=== PATIENT | male | born 1965 | race Two or more races ===

== ENCOUNTER 2024-06-24 06:56 | Outpatient (REF) | payer OTHER, SELFPAY ==
--- OUTSIDE RECORDS SUMMARY | 2024-06-24 07:01 | XMS_ITS | Data Portability ---
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 Patient reports history of previous cortisone injection with temporary relief. He has also tried rest, activity modification, oral anti-inflammatori es. Current episode is characterized by different pain pattern, with posterior knee swelling and medial knee pain. Patient describes occasional mechanical symptoms, specifically a 'clacking' sensation when getting up. Reports taking collagen supplements with some perceived benefit. I independently reviewed the outside MRI of the left knee dated 04/29/2024 from [facility]. There is degenerative tearing of the body of the medial meniscus. Undersurface tear of the posterior horn lateral meniscus. Charcot femoral chondromalacia noted without full thickness deficit to the tibiofemoral compartments. There is a full-thickness chondral fissure to the medial patellar facet. Extensor mechanism intact. Loculated Thomas cyst noted posteromedially. ACL and PCL intact collateral ligaments intact. He has a past medical history of hypertension. Medications listed in the medical record. He has allergies to Bactrim and aspirin. He denies tobacco use. No personal or family history of blood clots. Past medical, surgical, family and social history; Medications, Allergies and 12-point review of systems have been reviewed, updated and charted. Physical Examination: Height and weight as listed in chart. Constitutional: Patient pleasant, well appearing and in NAD. Mental status: Patient is alert and oriented to person, place and time. No short-term memory deficits. Psychiatric: Mood and affect are appropriate. Head: Normocephalic and atraumatic. Exterior inspection of the ears and nose was unremarkable. Hearing grossly intact. Eyes: Sclera are not blue. cable respooler II-XII are grossly intact. Full extraocular motion. Neck: Supple with age-appropriate ROM. No tracheal deviation. No obvious JVD. Respiratory: Non-labored breathing. Symmetric excursion. No audible wheezing or crackles on auscultation. Cardiovascular: Regular rate and rhythm and normal S1 and S2. Skin: No rashes, lesions, wounds to the lower extremities. Normal turgor and coloration. Musculoskeletal: On examination of the left knee, there is a mild effusion with no erythema or ecchymosis. Range of motion from 0-130??. He has pain with deep knee flexion. Tenderness to palpation along the medial joint line. Pain along the medial joint line with Litzy's maneuver. His knee is stable to varus and valgus stress as well as Sandra and posterior drawer. No patellar instability or grinding. Extensor mechanism intact. 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 I discussed etiology of the patient's symptoms with him at length today. I discussed options both operative and nonoperative. At this point, he has failed conservative treatment including rest, activity modification, oral anti-inflammatori es and cortisone injection treatment. Therefore, I recommend moving forward with left knee diagnostic and operative arthroscopy with partial medial and lateral meniscectomies and chondroplasty/zaria ridement. Anticipated recovery after surgery is approximately 6 weeks. I will allow the patient to weight-bear as tolerated. I recommend the patient begin physical therapy within 2 days of surgery to prevent knee stiffness. The patient does wish to proceed. Preoperative history and physical completed. All questions and concerns addressed. 1. A detailed discussion regarding the patient? s pathoanatomy and treatment options, both operative and non-operative, was conducted today. 2. Given that conservative measures have failed, I recommended left knee diagnostic and operative arthroscopy with partial medial and lateral meniscectomies and chondroplasty/zaria ridement. 2. The mechanics of the major surgery were reviewed with explanation, diagram, and review of imaging. 3. I told the patient that the goal of surgery was to improve their overall function and symptoms, but that surgery may not relieve all symptoms. I advised the patient that symptom resolution after this procedure may be protracted and incomplete.?? I explained that, as a result, permanent functional limitations may be recommended. 4. An appropriate timeline of recovery was outlined, and appropriate expectations were reviewed. 5. The risks and benefits of surgery, and the nonoperative alternatives, were discussed at length. Risks include, but are not limited to infection, bleeding, damage to nerves, blood vessels, muscle, tendon, bone; need for further surgery, wound healing problems, hardware related problems, non-relief of symptoms, recurrence of pathology, reinjury, chronic pain, chronic numbness, chronic weakness, loss of function, compartment syndrome, fracture, complex regional pain syndrome, joint stiffness, adhesions/scarrin g, arthritis or progression of arthritis, complications of anesthesia, and blood clots. 6. The patient has been educated in clear, simple language and on their own level of understanding the risks and benefits of all viable treatment options, including those of no treatment. All questions have been answered to their satisfaction. The patient has made an informed decision to proceed with surgery. 7. The patient was offered a second opinion regarding diagnosis and management of their condition and they respectfully declined. The patient was referred for a semi-rigid/rigid orthosis. The patient has weakness and instability of their extremity which requires stabilization for this semi-rigid/rigid orthosis to improve their function. Verbal and written instructions for the use and application of this item were given. Patient was instructed that should the brace result in increased pain, decreased sensation, increased swelling or an overall worsening of their medical condition, to please contact our office immediately. Today's visit involved examining the patient, reviewing the history, reviewing the radiographic studies, counseling the patient regarding treatment options, and the administrative tasks including placing orders, preparing patient information and home handouts and preparing the visit note. This note was generated with [employer] [facility] speech recognition welfare centre manager dictation software. Please excuse any errors that may have been overlooked during review of this note. Sometimes, these errors may affect the content or meaning of a given sentence. Please call for corrections. [email or web address] Not available 05/25/2024 15:23:43 Plan of Treatment Reminders Order Date Submit Date Provider Last Modified By Organization Details Last Modified Time Details Appointments None recorded. Lab None recorded. Referral None recorded. Procedures None recorded. Surgeries None recorded. Imaging MRI, knee, w/o contrast 2024 025 [facility] [address], [place], [address], 5 08:31:30 XR, knee, 4 or more view - 107 2023 024 [facility] Office, [address], [address], [place], [address], 4 15:56:44 Medication Orders None recorded. Patient TargetsNo targets recorded. Patient InstructionsNo instructions recorded. Reason for Referral None Reported. Results Created Date Observation Date Name Description Value Unit Range Abnormal Flag Note LastModifiedBy Organization Detail LastModifiedTime 11/03/19 24 11/03/2023 XR, knee, 4 or more view [email or web address] ?Encry pted=s hAaTro YD8dLq bEUv6g %2BXZw aYqtaq 0bqfl% 2Fg9IQ a4ajBk vP9nXo QUaueC m3YtLR FvZlgJ JJ8mAn HZtai3 5j4694 AC0Kpb HqEVKH eUC8mr 84%3D INTERFACE [facility] [address], [place], [address], 11/03/2023 13:53:02 11/03/19 24 11/03/2023 XR, knee, 4 or more view [email or web address] ?Encry pted=s hAaTro YD8dLq bEUv6g %2BXZw aYqtaq 0bqfl% 2Fg9IQ a4ajBk vP9nXo QUaueC m3YtLR FvZlgJ JJ8mAn HZtai3 7r9966 AC0Kpb HqEVKH eUC8mr 84%3D INTERFACE [facility] [address], [place], [address], 11/03/2023 13:53:05 04/30/19 25 04/29/2024 MRI, knee, w/o contr ast [facility] Access ion Number : [id number] Patien t Name: Bruce Trammell Record Number : [id number] Date of : 1965 Date of Exam: 2024 Referr ing Physic jackelyn: Neeta Samaniego [address] [facility], [place] [address] Exam: MR Knee (C-) CPT 06540 - Left Room Descri ption: [facility] Verio 3.0T MRI left knee Histor y: Pain Findin gs: Mild free edge degene rative radial tearin g with mild trunca tion of the body of the medial menisc us. Additi onal myxoid degene ration in the reservoir caretaker ior horn of the medial menisc us Body of the medial menisc us is sublux ed slight ly into the medial gutter . Thinni ng and irregu larity within weight bearin g surfac e cartil age of the medial compar tment. Small amount of subcho ndral marrow edema in the medial tibial platea u. Small margin al osteop hytes in the medial compar tment. Small unders urface tear within the reservoir caretaker ior horn of the latera l menisc us. Additi onal mild degene rative free edge radial tearin g with mild trunca tion of the reservoir caretaker ior horn of the latera l menisc us. Thinni ng and irregu larity within weight bearin g surfac e cartil age of the latera l compar tment The ACL and PCL are intact The MCL is intact The LCL comple x includ ing the biceps femori s, poplit eus and fibula r collat eral ligame nts are intact The medial and latera l patell ar retina cula are intact . Full thickn ess fissur e within medial patell ar facet cartil age. The extens or mechan ism is intact Locula romana Thomas' s cyst cyst measur es up to 3 cm AP by 6.5 cm cranio caudal .. Impres lyssa: Degene rative free edge radial tearin g with trunca tion of the body of the medial menisc us. Small unders urface tear in the reservoir caretaker ior horn of the latera l menisc us. Additi onal mild degene rative free edge radial tearin g with mild trunca tion of the reservoir caretaker ior horn of the latera l menisc us. Tricom partme ntal chondr omalac ia is outlin ed above. Locula romana Thomas' s cyst. Electr onical ly Signed By: Belkis Adhikari MD [address] [facility] ([facility]) [address], [place], [address], 04/30/2024 09:41:39 Result Notes None recorded. Problems Name Problem SNOMED Code Status Onset Date Resolution Date Notes Provider Name and Address Organization Details Recorded Time No complaints 202583880 Active Status : 'I'; Not Available [employer] 4 09:20:47 Pain of left knee joint 2703962907936 07 Active 2023 Neeta Herman PA-C [address], [facility] [place], [address] , [facility] 12:30:57 Problem Notes None recorded. Procedures Surgical History Date Name Laterality Status Provider Name and Address Organization Details Recorded Time 11/03/2023 Sports Knee 4&1 completed Neeta Herman PA-C [address], [place], [address], [facility] 11/05/2023 08:44:04 Imaging Results Imaging Date Name Status LastModified by Organiz ation Details LastModified Time 11/03/2023 XR, knee, 4 or more view completed [facility] [address], [place], [address], 11/03/2023 13:53:02 11/03/2023 XR, knee, 4 or more view completed [facility] [address], [place], [address], 11/03/2023 13:53:05 04/29/2024 MRI, knee, w/o contrast completed [address] [facility] ([facility]) [address], [place], [address], 04/30/2024 09:41:39 Procedure Notes None recorded. Medical Equipment None Reported. Allergies Allergen ID Allergen Name Allergen Category Reaction Reaction Severity Criticality Documentation Date Start Date Code Code System Note Provider Name and Address Organization Details Recorded Time 45649 Bactrim medicatio n Not available Not available Not available 06/23/20232021 42907 9 RxNorm Not Available [facility] 15:00:30 Medications Name Sig Start Date Stop Date Status Note LastModified by Organization Details LastModified Time doxycycline hyclate 100 mg capsule TAKE 1 CAPSULE BY MOUTH TWICE A DAY FOR 10 DAYS MAY TAKE WITH FOOD TO MINIMIZE ABDOMINAL DISCOMFOR T 11/02 completed Not Available Not Available Not Available cetirizine 10 mg tablet TAKE 1 TABLET BY MOUTH EVERY DAY active Not Available Not Available No t Available fluconazole 150 mg tablet TAKE 1 TABLET BY MOUTH ONCE 11/02 completed Not Available Not Available Not Available rizatriptan 10 mg tablet TAKE 1 TABLET BY MOUTH DAILY NEEDED FOR MIGRAINE HEADACHE, MAY REPEAT DOSE EVERY 2HRS. MAX OF 2 11/02 completed Not Available Not Available Not Available atenolol 25 mg tablet TAKE 1 TABLET BY MOUTH EVERYDAY AT BEDTIME active Not Available Not Available No t Available triamcinolo ne acetonide 0.1 % topical cream APPLY TOPICALLY 2 TIMES A DAY,X30 DAY APPLY A THIN FILM TO AFFECTED AREA active Not Available Not Available No t Available amlodipine 5 mg-benazepr il 10 mg capsule TAKE 1 CAPSULE BY MOUTH EVERY DAY active Not Available Not Available No t Available benzonatate 100 mg capsule TAKE 1 CAPSULE BY MOUTH THREE TIMES A DAY FOR 7 DAYS NEEDED FOR COUGH active Not Available Not Available No t Available cephalexin 500 mg capsule TAKE 1 CAPSULE BY MOUTH 4 TIMES A DAY FOR 7 DAYS 11/02 completed Not Available Not Available Not Available podofilox 0.5 % topical solution USE TWICE DAILY FOR 3 DAYS THEN 3 DAYS OFF UNTIL RESOLUTIO N active Not Available Not Available No t Available hydroxyzine HCl 25 mg tablet 11/02 completed Not Available Not Available Not Available mupirocin 2 % topical ointment APPLY TOPICALLY TO AFFECTED AREA OF SKIN TWICE A DAY FOR 14 DAYS 11/02 completed Not Available Not Available Not Available ketoconazol e 2 % topical cream APPLY TO AFFECTED SKIN TWICE DAILY FOR 14 DAYS NEEDED 11/02 completed Not Available Not Available Not Available fluocinonid e 0.05 % topical cream APPLY TO AFFECTED AREA (ARMPIT IRRITATIO N) EVERY MORNING & EVENING FOR A FEW DAYS ONLY. active Not Available Not Available No t Available doxycycline hyclate 100 mg tablet TAKE 1 TABLET BY MOUTH EVERY 12 HOURS FOR 10 DAYS 11/02 completed Not Available Not Available Not Available atenolol 50 mg tablet TAKE 1 TABLET BY MOUTH EVERY DAY active Not Available Not Available No t Available amoxicillin 875 mg-potassiu m clavulanate 125 mg tablet TAKE 1 TABLET BY MOUTH EVERY 12 HOURS BEFORE OR WITH MEALS AND SNACKS FOR 10 DAYS active Not Available Not Available No t Available clindamycin 1 % lotion APPLY TOPICALLY TO AFFECTED AREA(S) OF GROIN TWO TIMES A DAY FOR 2 TO 3 WEEKS 11/02 completed Not Available Not Available Not Available baclofen 5 mg tablet PLEASE SEE ATTACHED FOR DETAILED DIRECTION S 11/02 completed Not Available Not Available Not Available Vitals Date Recorded Body height Body mass index (BMI) Body weight Provider Name and Address Organization Details Last Updated DateTime 11/03/2023 182.88 cm 29.8 kg/m2 31144.32 g EDDIE Ozuna [employer] [employer] [facility] 11/03/2023 13:43:44 Date Recorded Body height Provider Name an d Address Organization Details Last Updated DateTime 04/27/2024 182.88 cm GEMA SEGUNDO [employer] [facility] 04/27/2024 15:16:42 Date Recorded Body height Body mass index (BMI) Body weight Heart rate Body temperature Oxygen saturation Oxygen saturation in Arterial blood by Pulse oximetry Respiratory rate Systolic blood pressure Diastolic blood pressure Provider Name and Address Organization Details Last Updated DateTime 182.88 cm 29.8 kg/m2 83759.3 2 g 71 /min 98.2 [degF] 96 % 96 % 18 /min 118 mm[Hg] 80 mm[Hg] CLAUDIA FERNANDES [place] [facility] 15:43:32 Social History Question Answer Notes LastModified by Organizat ion Details LastModified Time Tobacco Smoking Status Current Some Day Smoker EDDIE NEIDA nunez [place] [facility] 11/03/2023 13:43:31 What Is Your Level Of Alcohol Consumption? None Information not available 11/03/2023 Which Of Your Hands Is Dominant? Right Information not available 11/03/2023 What Is Your Relationship Status? Single Information not available 11/03/2023 Do You Use Any Illicit Or Recreational Drugs? No Information not available 11/03/2023 How Many Years Have You Smoked Tobacco? 15 Information not available 11/03/2023 Do You Or Have You Ever Used Any Other Forms Of Tobacco Or Nicotine? No Information not available 11/03/2023 Sex: Unknown Functional Status None recorded. Mental Status None recorded. Family History Nothing Reported. Medical History Condition Response Allergies/Hayfever N Coronary Artery Disease N Anxiety/Depression N Breathing or lung disorders N Emphysema N Nerve Disorders N Thyroid Problems N COPD N Pacemaker N Anemia N Kidney/Bladder Problems N Vascular Disease N Heart Trouble N Heart Attack ([place]) N Gastrointestinal Disease N Cholesterol N Diabetes N Autoimmune disease N Bleeding Disorder N Orthotics N Arthritis N Seizures/Epilepsy N Blood Clot N AIDS/HIV N Congestive Heart Failure (CHF) N Acid Reflux (GERD) N Cancer N Stroke N Asthma N Circulation Problems N Peripheral Vascular Disease N Sleep Apnea Y Hepatitis N Heart Disease N Rheumatoid Arthritis N Arrhythmia N Pulmonary Embolism N Headaches Y Fibromyalgia N Hypertension Y Osteoporosis N Past Encounters Encounter ID Performer Location Encounter Start Date Encounter Closed Date Diagnosis/Indication Diagnosis SNOMED-CT Code Diagnosis ICD10 Code Diagnosis Note [id number] PATI Machado [address] [place] [address] 11/03/2023 13:31:05 11/18/2023 15:56:44 Pain of left knee joint 6672746902 37280 M25.188 [id number] PATI Morton [address] [place] [address] 04/27/2024 14:55:14 05/12/2024 08:31:30 Pain of left knee joint 0876564391 55814 M25.654 [id number] MD GEMMA Sanon [address] [place] [address] 05/25/2024 14:25:24 06/07/2024 13:03:19 Tear of medial meniscus of knee 054271315 S83.242A Tear of la teral meniscus of knee 168424173 S83.282A Chondromal acia of left knee 5253728422 5930296 M94.262 Health Concerns Section Related Observation LastModified by Organization Detai ls LastModified Time None Recorded Concern Status LastModified by Organization Details LastModified Time None Recorded Advance Directives Directive None Recorded Payers Encounter Date Sequence Insurance Name Policy Number Policy Gupta Covered Member ID Gupta Member ID Guarantor Name 11/03/2023 1 [facility] (MEDICAID HMO) [id number] Bruce Trammell [id number] Bruce Trammell 04/27/2024 1 [employer] [facility] (EPO) [id number] Bruce Trammell [id number] Bruce Trammell 05/25/2024 1 [employer] [facility] (EPO) [id number] Bruce Trammell [id number] Bruce Trammell Notes Date Note Type Note Provider Name and Address Organization Details Recorded Time 11/03/2023 text/html I am seeing the patient today under the supervision of {{Marni Jimenez* Brothers}} who was available but who did not see the patient. HPI: 57-year-old male patient presents today for left knee pain that began about 6 months ago, no specific injury. Localizes his pain to the medial aspect of the knee. 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 Pain exacerbated with pivoting, pushing a bed, stairs, at night and prolonged walking. He does report mechanical catching. He takes ibuprofen as needed. Past family, social history and review of systems has been reviewed, updated and is located in the patient? s chart. X-RAYS:4v X-rays of the {{Right Left* Bilate ral}} knee were ordered, obtained and reviewed today at [facility] demonstrates well preserved medial and lateral compartment spaces, mild to moderate patellofemoral space narrowing. IMPRESSION: {{Right Left* Bilate ral}} knee - patellofemoral arthrosis, possible medial meniscus tearPLAN: Findings reviewed. Discussed conservative treatment as an appropriate initial option. He elected to proceed with left knee cortisone injection today. Discussed continuing to use [id number] knee sleeve and anti-inflammatories as needed. Discussed low impact exercise and avoiding squatting and kneeling to lower recheck visit. Follow-up in 8-10 weeks for recheck, if symptoms continue would obtain an MRI to rule out meniscus tear. All of his concerns are addressed and he understands and agrees with the plan. Speech recognition welfare centre manager software was used to create portions of this document. An attempt at proofreading has been made to minimize errors. Please call for corrections. Neeta Herman PA-C [address] [place] [address] [address] [facility] [place], [place], [address], [facility] [place] 11/05/2023 08:45:07 04/27/2024 text/html I am seeing the patient today under the supervision of {{Azra ConnellShickley Brothers}} who was available but who did not see the patient. CLINICAL UPDATE: 58-year-old male patient presents today for left knee recheck. Last cortisone injection 11/03/23 provided good relief but pain has returned. He reports he tried to walk on a flat incline on the treadmill and developed pain posterior knee and some low grade swelling. HPI: Presented 11/03/23 with left knee pain that began about 6 months ago, no specific injury. Localizes his pain to the medial aspect of the knee. 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 Pain exacerbated with pivoting, pushing a bed, stairs, at night and prolonged walking. He does report mechanical catching. He takes ibuprofen as needed. Past family, social history and review of systems has been reviewed, updated and is located in the patient? s chart.X-RAYS:Previou s4v X-rays of the {{Right Left* Bilate ral}} knee reviewed today at [facility] demonstrates well preserved medial and lateral compartment spaces, mild to moderate patellofemoral space narrowing. IMPRESSION: {{Right Left* Bilate ral}} knee - patellofemoral arthrosis, possible medial meniscus tear PLAN: Findings reviewed. Patient has tried a cortisone injection 11-03-2023 and ibuprofen with mild relief. However, he continues to have medial and posterior aspect knee pain worse with activity. Given his minimal osteoarthritis, recommended MRI of left knee to rule out degenerative meniscus tear and discussed role of arthroscopy. Follow-up for MRI review and ongoing symptoms. All of his concerns are addressed and he understands and agrees with the plan. Speech recognition welfare centre manager software was used to create portions of this document. An attempt at proofreading has been made to minimize errors. Please call for corrections. Neeta John PA-C [address], [place], [address], [facility] 04/27/2024 16:51:36
[2024-06-24 07:10] LABS: MANUAL DIFF FLAG NO
[2024-06-24 07:28] LABS: Basophils Absolute Auto 0.1 X10*3/uL (0.0-0.2); Basophils Percent Auto 0.9 % (0-2); Eosinophils Absolute Auto 0.4 X10*3/uL (0.0-0.4); Eosinophils Percent Auto 5.5 % (0-4); Hematocrit 42.8 % (42.0-52.0); Hemoglobin 15.1 g/dl (14.0-18.0); Imm Gran Abs Auto 0.02 X10*3/uL (0.00-0.03); Imm Gran Pct Auto 0.3 % (0.0-0.4); Lymphocytes Absolute Auto 2.4 X10*3/uL (1.2-4.9); Lymphocytes Percent Auto 30.8 % (20-40); Mean Corpuscular HGB Conc 35.3 g/dl (31.0-36.0); Mean Corpuscular Hemoglobin 29.9 pg (27.0-33.0); Mean Corpuscular Volume 84.8 fL (80.0-98.0); Mean Platelet Volume 9.3 fL (9.4-12.4); Monocytes Absolute Auto 0.6 X10*3/uL (0.1-1.2); Monocytes Percent Auto 7.2 % (2-11); Neutrophils Absolute Auto 4.3 x10*3/uL (2.0-8.3); Neutrophils Percent Auto 55.3 % (45-73); Platelet Count 338 X10*3/uL (160-400); Red Blood Count 5.05 X10*6/uL (4.60-5.80); Red Cell Distribution Width 14.3 % (11.0-16.0); White Blood Count 7.7 X10*3/uL (4.8-10.8)
[2024-06-24 08:03] LABS: Alanine Aminotransferase 33 U/L (0-40); Anion Gap 12 (12-20); Aspartate Amino Transferase 33 U/L (5-37); Blood Urea Nitrogen 20 mg/dL (9-16); Calcium 9.7 mg/dL (8.4-10.2); Carbon Dioxide 24 mmol/L (22-29); Chloride 107 mmol/L (96-108); Cholesterol 179 mg/dL (<200); Estimated Glomerular Filt Rate > 60; Glucose Random 95 mg/dL (60-115); HDL Cholesterol 43 mg/dL (>40); LDL Cholesterol Calculated 119 mg/dL (<100); Potassium 4.5 mmol/L (3.3-5.1); Sodium 138 mmol/L (135-145); Triglycerides 86 mg/dL (<150)
[2024-06-24 08:19] LABS: Thyroid Stimulating Hormone 1.06 uIU/mL (0.32-4.0)
== END 2024-06-24 06:57 | disposition home or self-care (01) ==
LOC: HO.LAB 06:56
PROVIDERS: PCP Internal Medicine; Visit Provider Internal Medicine
DX: Z00.00 Encounter for general adult medical examination without abnormal findings (principal); G47.33 Obstructive sleep apnea (adult) (pediatric); Z68.30 Body mass index [BMI] 30.0-30.9, adult
CPT/HCPCS: 36415; 80048; 80061; 84443; 84450; 84460; 85025

== ENCOUNTER 2024-07-29 06:32 | Emergency (ER) | payer OTHER, SELFPAY ==
[2024-07-29 06:34] VITALS: BP 143/81; PULSE 75; RESP 18; TEMP 36.6; O2SAT 98; BMI 29.8
[2024-07-29 06:48] LABS: MANUAL DIFF FLAG NO
[2024-07-29 06:54] LABS: Appearance Urine Clear; Color Urine Yellow; Glucose Urine UA Negative (Negative); Leukocyte Esterase Urine Negative (Negative); Nitrite Urine Negative (Negative); Specific Gravity - Urine 1.015 (1.005-1.025); Urine Blood Negative (Negative); Urine Ketones Negative (Negative); Urine Protein Negative (Neg-Trace)
[2024-07-29 06:55] LABS: Basophils Absolute Auto 0.1 X10*3/uL (0.0-0.2); Basophils Percent Auto 0.7 % (0-2); Eosinophils Absolute Auto 0.4 X10*3/uL (0.0-0.4); Eosinophils Percent Auto 4.1 % (0-4); Hematocrit 40.9 % (42.0-52.0); Hemoglobin 14.8 g/dl (14.0-18.0); Imm Gran Abs Auto 0.02 X10*3/uL (0.00-0.03); Imm Gran Pct Auto 0.2 % (0.0-0.4); Lymphocytes Absolute Auto 2.9 X10*3/uL (1.2-4.9); Lymphocytes Percent Auto 29.1 % (20-40); Mean Corpuscular HGB Conc 36.2 g/dl (31.0-36.0); Mean Corpuscular Hemoglobin 30.2 pg (27.0-33.0); Mean Corpuscular Volume 83.5 fL (80.0-98.0); Mean Platelet Volume 8.6 fL (9.4-12.4); Monocytes Absolute Auto 0.8 X10*3/uL (0.1-1.2); Monocytes Percent Auto 7.8 % (2-11); Neutrophils Absolute Auto 5.9 x10*3/uL (2.0-8.3); Neutrophils Percent Auto 58.1 % (45-73); Platelet Count 360 X10*3/uL (160-400); Red Cell Distribution Width 14.7 % (11.0-16.0); White Blood Count 10.1 X10*3/uL (4.8-10.8)
[2024-07-29 07:05] LABS: Bacteria Urine None Seen (None Seen); Hyaline Casts Urine 0-2 /LPF (0-2); RBC Urine 0-2 /HPF (0-2); Squamous Epithelial Cell Urine 0-2 /HPF (0-2); WBC Urine 0-5 /HPF (0-5)
--- OUTSIDE RECORDS SUMMARY | 2024-07-29 07:08 | XMS_ITS | Clinical Summary ---
Author Organization [facility] [address] [facility] Address [address] [place] [address] Phone Care Team Providers Care Orthotist Or Prosthetist Name Role Phone Chris Justice MD Primary Care Provider [phone] Allergies Active Allergy Reactions Criticality Noted Date Comments Aspirin 07/20/2024 Sulfamethoxazole-Trimethoprim 2024 Medications amLODIPine-shravan zepril (LOTREL) 5-10 mg per capsule 5 Active atenoloL (TENORMIN) 50 mg tablet 5 Active fluticasone propionate (FLONASE) 50 mcg/actuation nasal spray 5 Active podofilox (CONDYLOX) 0.5 % external solution 5 Active rizatriptan (MAXALT) 10 mg tablet TAKE 1 TABLET BY MOUTH DAILY NEEDED FOR MIGRAINE HEADACHE,MAY REPEAT DOSE EVERY 2HRS. MAX OF 2 4 Active triamcinolone (KENALOG) 0.1 % cream APPLY TOPICALLY 2 TIMES A DAY,X30 DAY APPLY A THIN FILM TO AFFECTED AREA 5 Active Encounters Date Type Department Care Team Description 07/20/2024 Telephone Gastroenterology - [address] [address] Ricardo Contreras MD Special Procedure from Last 3 Months Social History Tobacco Use Types Packs/Day Years Used Date Smoking Tobacco: Never Assessed Sex and Gender Information Value Date Recorded Sex Assigned at Not on file Legal Sex Male 12:47 PM EST Gender Identity Not on file Sexual Orientation Not on file Plan of Treatment Health Maintenance Due Date Last Done Comments DTaP,Tdap,and Td Vaccines (1 - Tdap) 12/30/1983 Hepatitis B Vaccines (1 of 3 - 19+ 3-dose series) 12/30/1983 Pneumococcal Vaccine: 50+ Ye ars (1 of 1 - PCV) 2014 Zoster Vaccines (1 of 2) 2014 COVID-19 Vaccine (1 - 2023-2 5 season) 2023 Cholesterol Screening (Lipid Panel) 07/20/2024 Colorectal Cancer Screening: Colonoscopy 07/20/2024 Depression Screening 07/20/2024 HIV Screening 07/20/2024 Hepatitis C Screening 07/20/2024 Social Influencers of Health Screening 07/20/2024 Influenza Vaccine (Season Ended) 2024 RSV Immunization Adult Patie nts (1 - 1-dose 75+ series) 12/30/2039 HIB Vaccines Aged Out No longer eligi ble based on patient's age to complete this topic HPV Vaccines Aged Out No longer eligi ble based on patient's age to complete this topic Hepatitis A Vaccines Aged Out No long er eligible based on patient's age to complete this topic IPV Vaccines Aged Out No longer eligi ble based on patient's age to complete this topic MMR Vaccines Aged Out No longer eligi ble based on patient's age to complete this topic Meningococcal ACWY Vaccine Aged Out N o longer eligible based on patient's age to complete this topic Meningococcal B Vaccine Aged Out No l onger eligible based on patient's age to complete this topic Pneumococcal Vaccine: Pediat rics (0 to 5 Years) and At-Risk Patients (6 to 64 Years) Aged Out No longer eligible b ased on patient's age to complete this topic RSV Immunization Patients Un brina 20 months Aged Out No longer eligible b ased on patient's age to complete this topic Varicella Vaccines Aged Out No longer eligible based on patient's age to complete this topic Insurance MEDICAID - [place] Care Teams Orthotist Or Prosthetist Relationship Specialty Start Date End Date Chris Justice MD [address] [place] [address] PCP - General Internal Medicine 07/02/18
--- NOTE | 2024-07-29 07:15 | ED.GENADULT ---
HPI - General Adult General Chief complaint: General Medical Stated complaint: lower back pain Time Seen by Provider: 07/29/24 07:04 Source: patient Mode of arrival: ambulatory Limitations: no limitations History of Present Illness HPI narrative: This is a 58-year-old man with a past medical history of hypertension who presents for evaluation of right lower back pain. Patient states that a few days prior to presentation he was bending over and then when he stood up straight he began to experience right lower back pain. He states no radiation of this patient. He states no trauma. He states no lower extremity/saddle paresthesias. He states no fevers or chills. He states his only daily medications are for hypertension. Related Data Previous Rx's ?Medication ?Instructions ?Recorded lidocaine 5 % topical patch 1 patch topical DAILY #15 ea 07/29/24 (Lidoderm) Allergies Allergy/AdvReac Type Severity Reaction Status Date / Time sulfamethoxazole Allergy Hives Verified 07/29/24 06:36 [From Bactrim] trimethoprim [From Bactrim] Allergy Hives Verified 07/29/24 06:36 Review of Systems Review of Systems: ROS as per HPI [facility] Social History Social History Unable to assess alcohol history related to: Unknown Smoked in Last 30 Days: No Use of substances other than those prescribed or required for medical reasons: Unknown Advance Directives: No Advance Directives Information Provided: No Do you have a plan to hurt others: No Plan Physical Exam ED Vital Signs: Vital Signs - 24 hr 07/29/24 06:34 Temperature 97.9 F Pulse Rate 75 Respiratory Rate 18 Blood Pressure 143/81 H Pulse Oximetry 98 Oxygen Delivery Method Room Air BMI result Body Mass Index 29.8 Gen: NAD, AOx3 HEENT: NCAT, EOMI, normal conjunctiva CV: RRR, 2+ DP/PT pulses Pulm: CTAB, no increased work of breathing GI: Soft, NTND, no rebound, guarding or rigidity MSK: No midline vertebral tenderness to palpation, mild right lower lumbar tenderness to palpation without overlying skin changes, BLE compartments are soft Neuro: Grossly non focal, sensation intact to light touch in bilateral lower extremities, 5/5 bilateral hip/knee/ankle/hallux extension/flexion Medications Administered Discontinued Medications Generic Name Dose Route Start Last Admin Trade Name Freq PRN Reason Stop Dose Admin Ketorolac Tromethamine 15 mg 07/29/24 07:13 07/29/24 07:17 Ketorolac Tromethamine 15 Mg/Ml Vial IVPUSH 07/29/24 07:14 15 mg ONCE ONE Administration Lidocaine 1 patch 07/29/24 07:13 07/29/24 07:17 Lidocaine 4 % Patch Adh..Patch TRANSDERMA 07/29/24 07:14 1 patch ONCE ONE Administration Protocol Medical Decision Making Medical Decision Making [facility] Narrative: Differential diagnosis includes, but is not limited to lumbar strain, degenerative disc disease, radiculopathy, herniated disc, spinal stenosis. Patient is afebrile and hemodynamically stable on room air. Exam is benign and reassuring. I reviewed and interpreted labs, which are noncontributory. Patient does not have any red flag symptoms associated with his back pain to sugges indication for further emergent evaluation with MRI given reassuring history and low clinical suspicion for pathologies inclding, but not limited to cauda equina syndrome, epidural abscess or osteomyelitis/discitis. Further, history and exam is not suggestive of nephrolithiasis, pyelonephritis, appendicitis or vascular catatrophe such as abdominal aortic aneurysm or aortic dissection. Thus, although CT imaging is considered it is no indicated at this time. Patient is treated supportively with Toradol and Lidoderm patch. On re-examination, patient is well-appearing and in no acute distress. There is no indication for further emergent evaluation in this otherwise well-appearing patient as above. Patient is provided written and verbal instructions, educational materials, recommendations for outpatient follow-up, prescription for lidocaine patches, strict return precautions and teach back is performed. Patient states understanding and agreement with plan of care. Patient is discharged home in stable and improved condition. Admission/Observation Consideration of admission/observation: Escalation of care including admission/observation considered Lab Data [facility] Lab Attestation statement: I reviewed the patient's lab results. CBC and metabolic panel are unremarkable and reassuring. Urinalysis is noncontributory with no RBCs to suggest nephrolithiasis and not consistent with urinary tract infection. 07/29/24 06:42 07/29/24 07:24 Labs: Lab Results 07/29/24 07/29/24 Range/Units 06:42 07:24 WBC 10.1 (4.8-10.8) X10*3/uL RBC 4.90 (4.60-5.80) X10*6/uL Hgb 14.8 (14.0-18.0) g/dl Hct 40.9 L (42.0-52.0) % MCV 83.5 (80.0-98.0) fL MCH 30.2 (27.0-33.0) pg MCHC 36.2 H (31.0-36.0) g/dl RDW 14.7 (11.0-16.0) % Plt Count 360 (160-400) X10*3/uL MPV 8.6 L (9.4-12.4) fL Immature Gran % (Auto) 0.2 (0.0-0.4) % Neut % (Auto) 58.1 (45-73) % Lymph % (Auto) 29.1 (20-40) % Gibson % (Auto) 7.8 (2-11) % Eos % (Auto) 4.1 H (0-4) % Baso % (Auto) 0.7 (0-2) % Lymph # (Auto) 2.9 (1.2-4.9) X10*3/uL Gibson # (Auto) 0.8 (0.1-1.2) X10*3/uL Eos # (Auto) 0.4 (0.0-0.4) X10*3/uL Baso # (Auto) 0.1 (0.0-0.2) X10*3/uL Abs Immat Gran (auto) 0.02 (0.00-0.03) X10*3/uL Absolute Neuts (auto) 5.9 (2.0-8.3) x10*3/uL Absolute Nucleated RBC 0.000 (0.0-0.012) X10*3/uL Nucleated RBC % (auto) 0.0 (0.0-0.2) /100WBC Sodium 137 (135-145) mmol/L Potassium 4.7 (3.3-5.1) mmol/L Chloride 108 (96-108) mmol/L Carbon Dioxide 23 (22-29) mmol/L Anion Gap 11 L (12-20) BUN 17 H (9-16) mg/dL Creatinine 0.91 (0.5-1.4) mg/dL Estim Creat Clear Calc 106.9 Estimated GFR > 60 Random Glucose 96 (60-115) mg/dL Calcium 9.3 (8.4-10.2) mg/dL Total Bilirubin 0.6 (0.0-1.0) mg/dL Direct Bilirubin 0.2 (0.0-0.5) mg/dL AST 33 (5-37) U/L ALT 37 (0-40) U/L Alkaline Phosphatase 74 (39-117) U/L Total Protein 6.9 (6.5-8.0) g/dL Albumin 4.1 (3.5-5.0) g/dL Urine Color Yellow Urine Appearance Clear Urine pH 7.0 (5.0-9.0) Ur Specific [place] 1.015 (1.005-1.025) Urine Protein Negative (Neg-Trace) mg/dL Urine Glucose (UA) Negative (Negative) mg/dL Urine Ketones Negative (Negative) mg/dL Urine Blood Negative (Negative) Urine Nitrite Negative (Negative) Ur Leukocyte Esterase Negative (Negative) Urine RBC 0-2 (0-2) /HPF Urine WBC 0-5 (0-5) /HPF Ur Squamous Epith Cells 0-2 (0-2) /HPF Urine Bacteria None Seen (None Seen) Hyaline Casts 0-2 (0-2) /LPF Discharge Plan Discharge Clinical Impression: Lumbar strain Patient Disposition: Home, Self-Care Instructions: Low Back Strain (ED) Additional Instructions: You were evaluated in the emergency room. Please continue managing your pain at home by taking 600mg ibuprofen every 6 hours with food AND water. You can additionally take 500-1000mg Tylenol every 8 hours. You are given a prescription for lidocaine patches. Please use as directed. Follow up with your primary care doctor in the next 2-3 days. Please call them to make an appointment. Return to the emergency room with any new concerns or symptoms. Prescriptions: New lidocaine [Lidoderm] 5 % adhesive patch,medicated 1 patch topical DAILY Qty: 15 0RF Rx Instructions: leave on most painful area for up to 12 hrs Print Language: Swiss
[2024-07-29] MEDS: Ketorolac Tromethamine 15 MG/ML VIAL IVPUSH (07:17)
[2024-07-29] MEDS: Lidocaine 4 % Patch ADH..PATCH 1 PATCH TRANSDERMA (07:17)
[2024-07-29 07:44] LABS: Alanine Aminotransferase 37 U/L (0-40); Albumin Level 4.1 g/dL (3.5-5.0); Alkaline Phosphatase 74 U/L (39-117); Anion Gap 11 (12-20); Aspartate Amino Transferase 33 U/L (5-37); Bilirubin Direct 0.2 mg/dL (0.0-0.5); Bilirubin Total 0.6 mg/dL (0.0-1.0); Blood Urea Nitrogen 17 mg/dL (9-16); Calcium 9.3 mg/dL (8.4-10.2); Carbon Dioxide 23 mmol/L (22-29); Chloride 108 mmol/L (96-108); Creatinine Clr Calc Pharmacy 106.9; Estimated Glomerular Filt Rate > 60; Glucose Random 96 mg/dL (60-115); Potassium 4.7 mmol/L (3.3-5.1); Sodium 137 mmol/L (135-145); Total Protein 6.9 g/dL (6.5-8.0)
[2024-07-29 08:10] VITALS: BP 126/82; PULSE 63; RESP 16; TEMP 36.6; O2SAT 100
== END 2024-07-29 08:11 | disposition home or self-care (01) ==
PROVIDERS: Emergency Provider Emergency Medicine; PCP Internal Medicine
DX: S39.012A Strain of muscle, fascia and tendon of lower back, initial encounter (principal); X50.9XXA Other and unspecified overexertion or strenuous movements or postures, initial encounter; I10 Essential (primary) hypertension; Y93.9 Activity, unspecified; Y92.9 Unspecified place or not applicable; Y99.9 Unspecified external cause status
CPT/HCPCS: 36415; 80048; 80076; 81001; 85025; 96374; 99284; J1885

== ENCOUNTER 2024-08-17 14:31 | Outpatient (AMB) | payer OTHER, SELFPAY ==
[2024-08-17 14:34] VITALS: BP 128/68; PULSE 73; BMI 31.2
--- NOTE | 2024-08-17 14:34 | A.OFFVIS_ITS ---
Vital Signs 08/17/24 14:34 Height 6 ft Weight 230 lb BMI 31.2 BP 128/68 Blood Pressure Location Rt brachial Position Sitting Pulse 73 Intake Visit Reasons: hernia Intake Note: Patient was seen at pcp Dr. Levine for bump on abdomen. Was diagnosed with Umbilical hernia. Denies pain or discomfort. Reports hx of LIH yrs ago. [employer] Required: No Accompanied by: Self / Same As Patient Allergies sulfamethoxazole [From Bactrim] Allergy (Verified 08/17/24 14:37) Hives trimethoprim [From Bactrim] Allergy (Verified 08/17/24 14:37) Hives Medication List - Last Reconciled 08/17/24 by Paul Mayen MD amlodipine-benazepril 5-10 mg 1 cap PO DAILY atenolol 50 mg PO DAILY cyclobenzaprine 10 mg PO TID lidocaine 5% (Lidoderm) 1 patch topical DAILY HPI HPI hernia: Details: 58-year-old male referred for an umbilical hernia. He has noticed this mass on his umbilicus for over a week now. He says that this seems to be bigger at times. 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 He admits to using a CPAP at night. Otherwise he says he is healthy overall. [facility] Medical History (Updated 08/17/24 @ 14:55 by Paul Mayen MD) Obstructive sleep apnea Umbilical hernia Surgical History Hx of left inguinal hernia repair Social History Unable to assess alcohol history related to: Unknown Alcohol intake: never Patient Tobacco Use Status: Never used Tobacco Review of Systems Const Denies chills and Denies fever(s) Card Denies chest pain, Denies dyspnea and Denies dyspnea on exertion Resp Denies cough, Denies dyspnea and Denies dyspnea on exertion GI Denies hematochezia and Denies change in bowel habits Denies hematuria and Denies difficulty urinating Musc Denies back pain and Denies limited range of motion Neuro Denies focal weakness and Denies convulsions Psych Denies depression and Denies mood swings Physical Exam Vital Signs: Last Vital Signs Pulse 73 08/17/24 14:34 BP 128/68 08/17/24 14:34 BMI result Body Mass Index 31.2 Const General: comfortable and no acute distress Orientation/consciousness: patient oriented x3 Neck Neck: Yes no lymphadenopathy Resp Auscultation: clear to auscultation bilaterally Cardio Rhythm: regular rhythm GI Other: Umbilical hernia, reducible, about 2 cm in diameter Palpation (GI): Soft to palpation, nontender and no guarding Neuro General: patient oriented x3 Assessment & Plan Assessment & Plan (1) Umbilical hernia: Code(s): K42.9 - Umbilical hernia without obstruction or gangrene Category: Medical Plan: He has a small reducible hernia probably about 2 cm in the umbilicus. He wants this repaired because of symptoms. I explained to him the technique of repair of the umbilical hernia with possible mesh placement. I reviewed the risks including but not limited to bleeding, infections, bowel injury, recurrence, as well as the benefits and alternatives. He understands and wants to proceed. Coding Level of Care Code New Pt Level 3 (24458) Diagnoses Umbilical hernia K42.9
--- OUTSIDE RECORDS SUMMARY | 2024-08-17 16:45 | XMS_ITS | Data Portability ---
Author Organization [facility], [facility] Address [address] [place] [address] Care Team Providers Care Bench Mechanic Name Role Phone TROY LEVINE Primary Care [...] of the left knee dated 04/29/2024 from [facility]. There is degenerative tearing of the [...] grossly intact. Eyes: Sclera are not blue. manager research development II-XII are grossly intact. Full extraocular motion. [...] erythema or ecchymosis. Range of motion from 0-130? ? ?. He has pain with deep knee flexion. [...] after this procedure may be protracted and incomplete.? ? ? I explained that, as a result, permanent [...] visit note. This note was generated with [employer] speech recognition propagator dictation software. Please excuse any errors that may have been overlooked during review of this note. Sometimes, these errors may affect the content or meaning of a given sentence. Please call for corrections. [email or web address] Not available 05/25/2024 15:23:43 Plan of Treatment Reminders Order Date Submit Date Provider Last Modified By Organization Details Last Modified Time Details Appointments None recorded. Lab None recorded. Referral None recorded. Procedures None recorded. Surgeries None recorded. Imaging MRI, knee, w/o contrast [address] [facility] ([facility]), [address], [place], [address], 5 08:31:30 XR, knee, 4 or more view - 107 2023 024 [facility] Office, [address], [address], [place], [address], 4 15:56:44 Medication Orders None recorded. Patient TargetsNo targets recorded. Patient InstructionsNo instructions recorded. Reason for Referral None Reported. Results Created Date Observation Date Name Description Value Unit Range Abnormal Flag Note LastModifiedBy Organization Detail LastModifiedTime 11/03/19 24 11/03/2023 XR, knee, 4 or more view http:/ [email or web address] ?Encry pted=s hAaTro YD8dLq bEUv6g %2BXZw aYqtaq 0bqfl% 2Fg9IQ a4ajBk vP9nXo QUaueC m3YtLR FvZl[address]tai[address] 6f8508 AC0Kpb HqEVKH eUC8mr 84%3D INTERFACE [facility] [address], [place], [address], 11/03/2023 13:53:02 11/03/19 24 11/03/2023 XR, knee, 4 or more view [email or web address] ?Encry pted=s hAaTro YD8dLq bEUv6g %2BXZw aYqtaq 0bqfl% 2Fg9IQ a4ajBk vP9nXo QUaueC m3YtLR FvZl[address]tai[address] 3o6842 AC0Kpb HqEVKH eUC8mr 84%3D INTERFACE [facility] [address], [place], [address], 11/03/2023 13:53:05 04/30/19 25 04/29/2024 MRI, knee, w/o contr ast [facility] Access ion Number : [id number] Patien t Name: Bruce Trammell Record Number : [id number] Date of : 1965 Date of Exam: 2024 Referr ing Physic jackelyn: Neeta Samaniego [address] [facility], [place] [address] Exam: MR Knee (C-) CPT 20542 - Left Room Descri ption: [facility] Verio 3.0T MRI left knee Histor y: Pain Findin gs: Mild free edge degene rative radial tearin g with mild trunca tion of the body of the medial menisc us. Additi onal myxoid degene ration in the hospital corpsman ior horn of the medial menisc us [...] tment. Small unders urface tear within the hospital corpsman ior horn of the latera l menisc us. Additi onal mild degene rative free edge radial tearin g with mild trunca tion of the hospital corpsman ior horn of the latera l menisc [...] us. Small unders urface tear in the hospital corpsman ior horn of the latera l menisc us. Additi onal mild degene rative free edge radial tearin g with mild trunca tion of the hospital corpsman ior horn of the latera l menisc us. Tricom partme ntal chondr omalac ia is outlin ed above. Locula romana Thomas' s cyst. Electr onical ly Signed By: Belkis Adhikari MD [address] [facility] ([facility]) [address], [place], [address], 04/30/2024 09:41:39 Result Notes None recorded. Problems Name Problem SNOMED Code Status Onset Date Resolution Date Notes Provider Name and Address Organization Details Recorded Time No complaints 535262287 Active Status : 'I'; Not Available [facility] 09:20:47 Pain of left knee joint 8850887498113 07 Active 2023 Neeta Herman PA-C [address] [facility], [place], [address] , [facility] 12:30:57 Problem Notes None recorded. Procedures Surgical History Date Name Laterality Status Provider Name and Address Organization Details Recorded Time 11/03/2023 Sports Knee 4&1 completed Neeta Herman PA-C [address], [place], [address], [facility] 11/05/2023 08:44:04 Imaging Results Imaging Date Name Status LastModified by Organiz ation Details LastModified Time 11/03/2023 XR, knee, 4 or more view completed INTERFACE [facility] [address], [place], [address], 11/03/2023 13:53:02 11/03/2023 XR, knee, 4 or more view completed INTERFACE [facility] [address], [place], [address], 11/03/2023 13:53:05 04/29/2024 MRI, knee, w/o contrast completed [email or web address] [facility] ([facility]) [address], [place], [address], 04/30/2024 09:41:39 Procedure Notes None recorded. Medical Equipment None Reported. Allergies Allergen ID Allergen Name Allergen Category Reaction Reaction Severity Criticality Documentation Date Start Date Code Code System Note Provider Name and Address Organization Details Recorded Time 54473 Bactrim medicatio n Not available Not available Not available 06/23/20232021 45777 9 RxNorm Not Available [facility] 15:00:30 Medications Name Sig Start Date Stop [...] Updated DateTime 11/03/2023 182.88 cm 29.8 kg/m2 88718.32 g EDDIE Ozuna [facility] 11/03/2023 13:43:44 Date Recorded Body height Provider Name an d Address Organization Details Last Updated DateTime 04/27/2024 182.88 cm GEMA SEGUNDO [facility] 04/27/2024 15:16:42 Date Recorded Body height Body mass index (BMI) Body weight Heart rate Body temperature Oxygen saturation Oxygen saturation in Arterial blood by Pulse oximetry Respiratory rate Systolic blood pressure Diastolic blood pressure Provider Name and Address Organization Details Last Updated DateTime 182.88 cm 29.8 kg/m2 29856.3 2 g 71 /min 98.2 [degF] 96 % 96 % 18 /min 118 mm[Hg] 80 mm[Hg] CLAUDIA FERNANDES [facility] 15:43:32 Social History Question Answer Notes LastModified by Organizat ion Details LastModified Time Tobacco Smoking Status Current Some Day Smoker EDDIEMARIA EUGENIA nunez [place] 11/03/2023 13:43:31 What Is Your Level Of [...] Disease N Heart Trouble N Heart Attack ([place]) N Gastrointestinal Disease N Cholesterol N Diabetes [...] SNOMED-CT Code Diagnosis ICD10 Code Diagnosis Note [id number] PATI Machado [address] [place] [address] 11/03/2023 13:31:05 11/18/2023 15:56:44 Pain of left knee joint 9847351682 89153 M25.138 [id number] PATI Morton [address] [place] [place] [address] 04/27/2024 14:55:14 05/12/2024 08:31:30 Pain of left knee joint 3878422623 46452 M25.389 [id number] MD GEMMA Sanon [address] [place] [address] 05/25/2024 14:25:24 06/07/2024 13:03:19 Tear of medial meniscus of knee 917481173 S83.242A Tear of la teral meniscus of knee 722789559 S83.282A Chondromal acia of left knee 6471260965 2356972 M94.262 Health Concerns Section Related Observation LastModified by Organization Detai ls LastModified Time None Recorded Concern Status LastModified by Organization Details LastModified Time None Recorded Advance Directives Directive None Recorded Payers Encounter Date Sequence Insurance Name Policy Number Policy Gupta Covered Member ID Gupta Member ID Guarantor Name 11/03/2023 1 [facility] (MEDICAID HMO) [id number] Bruce Trammell [id number] Bruce Trammell 04/27/2024 1 [employer] [facility] (EPO) [id number] Bruce Trammell [id number] Bruce Trammell 05/25/2024 1 [employer] [facility] (EPO) [id number] Bruce Trammell [id number] Bruce Trammell Notes Date Note Type Note [...] 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 Pain exacerbated with pivoting, pushing a bed, stairs, at night and prolonged walking. He does report mechanical catching. He takes ibuprofen as needed. Past family, social history and review of systems has been reviewed, updated and is located in the patient? s chart. X-RAYS:4v X-rays of the {{Right Left* Bilate ral}} knee were ordered, obtained and reviewed today at [facility] demonstrates well preserved medial and lateral compartment spaces, mild to moderate patellofemoral space narrowing. IMPRESSION: {{Right Left* Bilate ral}} knee - patellofemoral arthrosis, possible medial meniscus tearPLAN: Findings reviewed. Discussed conservative treatment as an appropriate initial option. He elected to proceed with left knee cortisone injection today. Discussed continuing to use [id number] knee sleeve and anti-inflammatories as needed. Discussed low impact exercise and avoiding squatting and kneeling to lower recheck visit. Follow-up in 8-10 weeks for recheck, if symptoms continue would obtain an MRI to rule out meniscus tear. All of his concerns are addressed and he understands and agrees with the plan. Speech recognition propagator software was used to create portions of this document. An attempt at proofreading has been made to minimize errors. Please call for corrections. 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 Pain exacerbated with pivoting, pushing a bed, stairs, at night and prolonged walking. He does report mechanical catching. He takes ibuprofen as needed. Past family, social history and review of systems has been reviewed, updated and is located in the patient? s chart.X-RAYS:Previo us4v X-rays of the {{Right Left* Bilate ral}} knee reviewed today at [facility] demonstrates well preserved medial and lateral compartment [...] and agrees with the plan. Speech recognition propagator software was used to create portions of this document. An attempt at proofreading has been made to minimize errors. Please call for corrections. Neeta John PA-C [address] [facility] [address], [place], [address], [facility] [place] [facility] 04/27/2024 16:51:36
--- OUTSIDE RECORDS SUMMARY | 2024-08-17 16:45 | XMS_ITS | Clinical Summary ---
Author Organization [facility] Address [address] [place] [address] Phone Care Team Providers Care Addiction Nurse Name Role Phone Chris Justice MD Primary Care Provider [phone] Allergies Active Allergy Reactions Criticality Noted Date [...] Team Description 07/20/2024 Telephone Gastroenterology - [address] [address] Ricardo Contreras MD Special Procedure [...] topic Insurance MEDICAID - [place] Care Teams Addiction Nurse Relationship Specialty Start Date End Date Chris Justice MD [address] [place] [address] PCP - General Internal Medicine 07/02/18
== END 2024-08-17 14:46 | disposition home or self-care (01) ==
LOC: HO.HGS 14:31
PROVIDERS: PCP Internal Medicine; Visit Provider Surgery
DX: K42.9 Umbilical hernia without obstruction or gangrene (principal)
CPT/HCPCS: 99203

== ENCOUNTER 2024-09-02 13:47 | Outpatient (REF) | payer OTHER, SELFPAY ==
--- NOTE | ~2024-09-02 | XR_ITS ---
CLINICAL HISTORY: M25.562 - Pain in left knee AP standing view of bilateral knees, two views of the left knee Comparison: None Findings: Bones intact. No dislocations. No significant loss of joint space, osteophytes, or erosions. No joint effusion. No radiopaque foreign body. IMPRESSION: 1. No acute findings. This document has been electronically signed by: Joycelyn Malin MD on 09/02/2024 18:14:54
--- OUTSIDE RECORDS SUMMARY | 2024-09-02 14:25 | XMS_ITS | Clinical Summary ---
Author Organization [facility] Address [address] [place] [address] Phone Care Team Providers Care Log Getter Name Role Phone Chris Justice MD Primary Care Provider [phone] Allergies Active Allergy Reactions Criticality Noted Date [...] Team Description 07/20/2024 Telephone Gastroenterology - [address] [address] Ricardo Contreras MD Special Procedure [...] topic Insurance [place] - [place] Care Teams Log Getter Relationship Specialty Start Date End Date Chris Justice MD [address] [place] [address] PCP - General Internal Medicine 07/02/18
== END 2024-09-02 13:48 | disposition home or self-care (01) ==
LOC: HO.HOSX 13:47
PROVIDERS: Visit Provider Physician Assistant
DX: M25.562 Pain in left knee (principal)
CPT/HCPCS: 73562

== ENCOUNTER 2024-09-02 15:06 | Outpatient (AMB) | payer OTHER, SELFPAY ==
--- NOTE | 2024-09-02 15:07 | MHC.OFFVIS ---
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 Per [facility] needs surgery. When had pain was a sharp pain just in the knee. States nothing out of ordinary to cause pain. WHen had pain was taking ibprophen and tylenol. 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 He denies injury. He complains of pain that was located along the medial aspect of the knee and had discomfort with impact type activities. He did have an MRI which was significant for a meniscus tear and some chondromalacia. He has since been modifying his activities in avoiding impact like running. Has been walking on a treadmill and still remains active and feels his symptoms have since subsided. He denies limitations in activities. [facility] Medical History Obstructive sleep apnea Umbilical hernia Surgical History Hx of left inguinal hernia repair Social History Unable to assess alcohol history related to: Unknown Alcohol intake: never Patient Tobacco Use Status: Never used Tobacco Review of Systems Const All systems reviewed & are unremarkable except as noted in HPI and below Physical Exam Vital Signs: BMI result Body Mass Index 29.8 Const General: cooperative and no acute distress Orientation/consciousness: patient oriented x3 Resp Effort & Inspection: normal respiratory effort and able to speak in complete sentences Cardio Peripheral pulses: Peripheral pulses 2+ throughout Neuro General: patient oriented x3 Extrem Other: Left knee skin intact, no erythema or joint effusion. No Tenderness along the medial or lateral joint line. ROM full with crepitus. Negative steinmans. No ligamentous laxity. NVI. Results Reviewed Results Reviewed: X-rays of the left knee obtained in the office today show mild arthritis Assessment & Plan Assessment & Plan (1) Patellofemoral arthritis of left knee: Code(s): M17.12 - Unilateral primary osteoarthritis, left knee Category: Medical Plan: We discussed options today which include continued conservative management with modifying activities as needed. I did place an order for physical therapy if he is interested in learning some conditioning exercises to prevent injury. If symptoms arise he will contact our office otherwise follow up as needed. Orders: Orders XR knee LT 3V 09/02/24 M25.562 - Pain in left knee Coding Level of Care Code New Pt Level 3 (60799) Complex EM visit Add On G2211 Diagnoses Patellofemoral arthritis of left knee M17.12
[2024-09-02 15:08] VITALS: BMI 29.8
--- OUTSIDE RECORDS SUMMARY | 2024-09-02 15:44 | XMS_ITS | Clinical Summary ---
Author Organization [facility] Address [address] [place] [address] Phone Care Team Providers Care Paint Roller Cover Machine Setter Name Role Phone Chris Justice MD Primary Care Provider [phone] Allergies Active Allergy Reactions Criticality Noted Date [...] Team Description 07/20/2024 Telephone Gastroenterology - [address] [address] Ricardo Contreras MD Special Procedure [...] topic Insurance [place] - [place] Care Teams Paint Roller Cover Machine Setter Relationship Specialty Start Date End Date Chris Justice MD [address] [place] [address] PCP - General Internal Medicine 07/02/18
== END 2024-09-02 15:50 | disposition home or self-care (01) ==
LOC: HO.HOS 15:06
PROVIDERS: PCP Internal Medicine; Visit Provider Physician Assistant
DX: M17.12 Unilateral primary osteoarthritis, left knee (principal)
CPT/HCPCS: 99203

== ENCOUNTER → 2024-09-02 15:08 | Outpatient (BNV) | payer OTHER, SELFPAY | PROVIDERS: Visit Provider Radiology Diagnostic Radiology | DX: M25.562 Pain in left knee (principal) | CPT/HCPCS: 73562 ==

== ENCOUNTER 2024-09-14 07:57 | Day surgery (SDC) | payer OTHER, SELFPAY ==
--- OUTSIDE RECORDS SUMMARY | 2024-08-19 06:10 | XMS_ITS | Clinical Summary ---
Author Organization [facility] Address [address] [place] [address] Phone Care Team Providers Care Ship Manager Name Role Phone Chris Justice MD Primary Care Provider [phone] Allergies Active Allergy Reactions Criticality Noted Date [...] Team Description 07/20/2024 Telephone Gastroenterology - [address] [address] Ricardo Contreras MD Special Procedure [...] topic Insurance [place] - [place] Care Teams Ship Manager Relationship Specialty Start Date End Date Chris Justice MD [address] [place] [address] PCP - General Internal Medicine 07/02/18
[2024-09-09 14:11] VITALS: BMI 31.2
[2024-09-14] VITALS (12 sets, daily range): BP systolic 90–124; BP diastolic 47–86; PULSE 53–63; RESP 14–16; TEMP 36.3–36.4; O2SAT 95–98; BMI 30.7
[2024-09-14] MEDS: Lactated Ringers 1,000 ML 50 ML IVCONT (09:04)
[2024-09-14] MEDS: Acetaminophen 1,000 MG/100 ML PIGGYBACK 400 MG IV (10:55)
--- NOTE | 2024-09-14 11:09 | MHC.SHP ---
Pre-Procedural Eval Section A - 24 Hr Update-Section A only Date of Service: 09/14/24 The patient is an INPATIENT: No Changes since office visit: No Cold of Flu in the past 2 weeks, No New Medical Problems, No Changes in Medication and No Patient answered all questions The patient has been examined within 24 hours of the surgical procedure. The History & Physical has been completed within 30 days and I have reviewed it.: Yes Section B - Complete if H&P > 30 days Chief Complaint: Umbilical hernia without obstruction or gangrene Allergies: Allergies Allergy/AdvReac Type Severity Reaction Status Date / Time sulfamethoxazole Allergy Hives Verified 09/02/24 15:18 [From Bactrim] trimethoprim [From Bactrim] Allergy Hives Verified 09/02/24 15:18 Plan I have reviewed the history and physical and performed a pertinent physical examination on my patient. No changes have occurred unless specified. Time Spent With Patient Time: Total time managing care of this patient today ____ minutes.
[2024-09-14] MEDS: ceFAZolin Sodium/Dextrose,Iso 2 GM/50 ML PIGGYBACK IV (11:35)
--- NOTE | 2024-09-14 11:43 | HO.ANESPROP2 ---
HPI - Anesthesia Eval Consult details Narrative: 58 yo M presenting for umbilical hernia repair PMFSH Active Problems Active Problems: All Active Problems Patellofemoral arthritis of left knee (Acute) Obstructive sleep apnea (Acute) Umbilical hernia (Acute) Past Medical History Medical History (Updated 09/10/24 @ 09:59 by Stephany Henderson RN) Insomnia Hyperprolactinemia HTN (hypertension) Obstructive sleep apnea Umbilical hernia Family History Family history of problems with anesthesia: No Surgical History Surgical History (Updated 09/10/24 @ 09:59 by Stephany Henderson RN) H/O colonoscopy Hx of left inguinal hernia repair History of Problems with Anesthesia: No Social History Social History Unable to assess alcohol history related to: Unknown Alcohol intake: never Patient Tobacco Use Status: Current someday Tobacco user Use of substances other than those prescribed or required for medical reasons: No Are you DNR?: No Advance Directives: No Advance Directives Information Provided: Yes Poor oral hygiene: No Meds Allergies Allergy/AdvReac Type Severity Reaction Status Date / Time sulfamethoxazole Allergy Hives Verified 09/02/24 15:18 [From Bactrim] trimethoprim [From Bactrim] Allergy Hives Verified 09/02/24 15:18 Active Medications: Current Medications Fentanyl (Fentanyl Citrate/Pf 100 Mcg/2 Ml Vial) 50 mcg IVPUSH Q5M PRN PRN Reason: Pain, Moderate to Severe (Pain Scale 4-10) Stop: 09/14/24 17:22 Haloperidol Lactate (Haloperidol Lactate 5 Mg/Ml Vial) 1 mg IVPUSH ONCE PRN PRN Reason: intractable nausea Stop: 09/14/24 17:22 Lactated Ringer's (Lr) 1,000 mls @ 50 mls/hr IVCONT .Q20H TE Last Admin: 09/14/24 09:04 Dose: 50 mls/hr Naloxone HCl (Naloxone Hcl 0.4 Mg/Ml Vial) 0.04 mg IVPUSH Q5M PRN PRN Reason: Excessive sedation or RR < 8 Oxycodone HCl (Oxycodone Hcl Immed Release 5 Mg Tablet) 5 mg PO ONCE PRN PRN Reason: Pain, Moderate(Pain Scale 4-6) if no IV Access Stop: 09/14/24 17:22 Home Medications ?Medication ?Instructions ?Recorded ?Confirmed ?Last Taken ?Type amlodipine 5 mg-benazepril 10 mg 1 cap PO DAILY 08/17/24 09/09/24 Unknown History capsule atenolol 50 mg tablet 50 mg PO DAILY 08/17/24 09/09/24 09/14/24 History cyclobenzaprine 10 mg tablet 10 mg PO TID 08/17/24 09/09/24 Unknown History Exam Exam Date and Time: 09/14/24 1120 Height,Weight and Vital Signs: Height 6 ft Weight 102.6 kg Last Vital Signs Temp 97.6 F 09/14/24 08:58 Pulse 63 09/14/24 08:58 Resp 16 09/14/24 08:58 BP 121/78 09/14/24 08:58 Pulse Ox 97 09/14/24 08:58 O2 Del Method Room Air 09/14/24 08:58 Airway Mallampati Class: III (large tongue) TM Dist: >3cm Neck ROM: Full Loose/Missing/Broken Teeth: Yes (multiple missing teeth) Heart: S1S2 Lungs: CTAB Assessment and Plan Assessment Anesthesia Assessment: Anesthesia Plan Discussed and Chart Reviewed Final Anesthetic Review Family History of Problems with Anesthesia: No History of Problems with Anesthesia: No NPO: Yes ASA Class: II Final Preanesthetic Review: No Changes in Pt Med Stat, Meds/Allgs Chart Reviewed, Consent Obtained/Reviewed and Anes Risks/Benef Reviewed Patient Risk: Low Procedure Risk: Low Anesthetic Plan Anesthetic Plan: GA and Agree w/ Assess. and Plan Disposition: Standard PACU
--- NOTE | 2024-09-14 11:58 | W.PM.OPN ---
Operative Note Operative Note Date of Service: 09/14/24 Narrative: Preop diagnosis: Umbilical hernia, reducible Postop diagnosis: The same Procedure: Repair of umbilical hernia with Phasix umbilical mesh Surgeon: Paul Mayen MD events and promotions assistant: REZA Finley The patient is a 58-year-old male with a reducible umbilical hernia. He wanted to proceed with the repair in view of symptoms. He understood the technique of the planned procedure as well as the risks, benefits, and alternatives He was brought to the operating room. He was placed supine under general anesthesia via laryngeal mask airway. The abdomen was prepped and draped in the usual sterile fashion. A surgical time-out was done. The patient received cefazolin 2 g IV preoperatively. I infiltrated the planned line of incision with lidocaine 1%. I made a transverse supraumbilical curvilinear incision with a blade 15. This carried down through the full-thickness of the skin subcutaneous fat. I proceeded to then gently dissect the umbilicus off of the fascia as a flap using Metzenbaum scissors as well as electrocautery. By doing so, I was able to identify the hernia which contained fat. I gently dissected the hernia off of the rest of the fascia using Metzenbaum scissors as well as electrocautery to divide all the adhesions. By doing so, I was able to completely reduce the hernia contents through the umbilical defect. The fascial defect was about 1.2 cm in diameter. The underside of the fascial defect was free of adhesions. There were no bowel loops surrounding the area. I therefore positioned a small-sized Phasix umbilical mesh under the fascial defect. I secured the Prolene straps of the mesh on both sides with Prolene 2 sutures. I then trimmed the Prolene straps flush at the fascial level with scissors. I closed the fascial defect with a [id number] Maxon 1 stitch. We irrigated. We tacked the umbilicus down to the fascia with Polysorb 3-0 sutures to re-create the dimple. The subcutaneous layer was reapposed with Polysorb 3-0 simple interrupted sutures. Skin closure was achieved with Polysorb 4-0 subcuticular running stitch. The area was infiltrated with Marcaine 0.5% for postop analgesia. Dressings were applied. The procedure was completed The patient tolerated the procedure well. There were no immediate complications. Initial and final counts of sponges and instruments were correct. Estimated blood loss was about 5 cc The patient was extubated without difficulty and transferred to the recovery room with stable vital signs.
[2024-09-14] MEDS: fentaNYL citrate/PF 100 MCG/2 ML VIAL 50 MCG IVPUSH ×2 (12:46→12:52)
[2024-09-14] MEDS: oxyCODONE HCl Immed Release 5 MG TABLET PO (13:00)
== END 2024-09-14 13:45 | disposition home or self-care (01) ==
PROVIDERS: PCP Internal Medicine; Visit Provider Surgery
PROC: (CPT 49591; principal; 2024-09-14 11:50)
DX: K42.9 Umbilical hernia without obstruction or gangrene (principal); G47.33 Obstructive sleep apnea (adult) (pediatric); Z99.89 Dependence on other enabling machines and devices; Z79.899 Other long term (current) drug therapy; Z88.2 Allergy status to sulfonamides; Z72.0 Tobacco use
CPT/HCPCS: 49591; C1781; J0131; J0690; J1100; J1885; J2003; J2250; J2405; J2704; J2795; J3010

== ENCOUNTER → 2024-09-14 07:57 | Outpatient (BNV) | payer OTHER, SELFPAY | PROVIDERS: PCP Internal Medicine; Visit Provider Surgery | DX: K42.9 Umbilical hernia without obstruction or gangrene (principal) | CPT/HCPCS: 49591 ==

== ENCOUNTER 2024-09-18 21:24 | Emergency (ER) | payer OTHER, SELFPAY ==
--- NOTE | ~2024-09-18 | CT_ITS ---
CLINICAL HISTORY: Left flank pain post umbilical surgery CT abdomen and pelvis without contrast Comparison: None Findings: No consolidation or effusion. The liver, gallbladder, spleen, pancreas, kidneys and adrenal glands are normal in appearance. No hydronephrosis. No renal or ureteral stones. No bowel obstruction, pneumoperitoneum, or pneumatosis. There is soft tissue stranding in the region of the umbilicus with a moderate amount of gas in the adjacent soft tissues. Stranding extends through the anterior abdominal wall into the anterior abdominal intraperitoneal fat. Findings are consistent with postoperative change at the umbilicus. No discrete abscess. Pelvic contents unremarkable. Normal appendix. Fat containing left inguinal hernia. The bones are intact. IMPRESSION: Postoperative stranding and gas in the region of the umbilicus without discrete abscess. This document has been electronically signed by: Chris Reyes MD on 09/19/2024 01:15:55
[2024-09-18 21:29] VITALS: BP 160/108; PULSE 88; RESP 18; TEMP 36.6; O2SAT 98; BMI 31.4
[2024-09-18 22:29] LABS: MANUAL DIFF FLAG NO
[2024-09-18 22:30] LABS: Basophils Absolute Auto 0.1 X10*3/uL (0.0-0.2); Basophils Percent Auto 0.8 % (0-2); Eosinophils Absolute Auto 0.6 X10*3/uL (0.0-0.4); Eosinophils Percent Auto 7.7 % (0-4); Hematocrit 38.4 % (42.0-52.0); Hemoglobin 13.7 g/dl (14.0-18.0); Imm Gran Abs Auto 0.02 X10*3/uL (0.00-0.03); Imm Gran Pct Auto 0.3 % (0.0-0.4); Lymphocytes Percent Auto 39.3 % (20-40); Mean Corpuscular HGB Conc 35.7 g/dl (31.0-36.0); Mean Corpuscular Volume 84.2 fL (80.0-98.0); Mean Platelet Volume 8.6 fL (9.4-12.4); Monocytes Absolute Auto 0.7 X10*3/uL (0.1-1.2); Monocytes Percent Auto 8.4 % (2-11); Neutrophils Absolute Auto 3.4 x10*3/uL (2.0-8.3); Neutrophils Percent Auto 43.5 % (45-73); Platelet Count 288 X10*3/uL (160-400); Red Blood Count 4.56 X10*6/uL (4.60-5.80); Red Cell Distribution Width 14.6 % (11.0-16.0); White Blood Count 7.7 X10*3/uL (4.8-10.8)
[2024-09-18 22:46] LABS: Alanine Aminotransferase 28 U/L (0-40); Albumin Level 3.9 g/dL (3.5-5.0); Alkaline Phosphatase 71 U/L (39-117); Anion Gap 13 (12-20); Aspartate Amino Transferase 26 U/L (5-37); Bilirubin Total 0.3 mg/dL (0.0-1.0); Blood Urea Nitrogen 15 mg/dL (9-16); Calcium 9.3 mg/dL (8.4-10.2); Carbon Dioxide 24 mmol/L (22-29); Chloride 107 mmol/L (96-108); Estimated Glomerular Filt Rate > 60; Glucose Random 110 mg/dL (60-115); Potassium 4.2 mmol/L (3.3-5.1); Sodium 140 mmol/L (135-145); Total Protein 6.5 g/dL (6.5-8.0)
--- NOTE | 2024-09-18 22:48 | ED.ABDPAIN ---
HPI - Abdominal Pain General Chief Complaint: Abdominal Pain Stated Complaint: surgery area seems yellow sluggish/abd Time Seen by Provider: 09/18/24 22:42 Source: patient Mode of arrival: ambulatory Limitations: no limitations History of Present Illness ED Provider: HPI narrative: Patient was healthy status post umbilical hernia repair on 09/14 from next day of surgery patient's started noticing pain in the left lower abdomen radiating to the back off and on no history of kidney stone no fever no chills no nausea no vomiting Related Data Home Medications ?Medication ?Instructions ?Recorded ?Confirmed amlodipine 5 mg-benazepril 10 mg 1 cap PO DAILY 08/17/24 09/09/24 capsule atenolol 50 mg tablet 50 mg PO DAILY 08/17/24 09/09/24 cyclobenzaprine 10 mg tablet 10 mg PO TID 08/17/24 09/09/24 Previous Rx's ?Medication ?Instructions ?Recorded lidocaine 5 % topical patch 1 patch topical DAILY #15 ea 07/29/24 (Lidoderm) ibuprofen 600 mg tablet 600 mg PO Q6H PRN pain #30 tabs 09/14/24 oxycodone-acetaminophen 5 mg-325 1 tab PO Q6H PRN pain #20 tabs 09/14/24 mg tablet Allergies Allergy/AdvReac Type Severity Reaction Status Date / Time sulfamethoxazole Allergy Hives Verified 09/18/24 21:35 [From Bactrim] trimethoprim [From Bactrim] Allergy Hives Verified 09/18/24 21:35 Review of Systems Review of Systems Yes all other systems are reviewed and are negative PMFSH Past Medical History Medical History (Updated 09/19/24 @ 01:20 by Ivan Ni MD) Insomnia Hyperprolactinemia HTN (hypertension) Obstructive sleep apnea Umbilical hernia Surgical History (Updated 09/10/24 @ 09:59 by Stephany Henderson RN) H/O colonoscopy Hx of left inguinal hernia repair Social History Social History Unable to assess alcohol history related to: Unknown Alcohol intake: never Patient Tobacco Use Status: Current someday Tobacco user Smoked in Last 30 Days: No Use of substances other than those prescribed or required for medical reasons: No Advance Directives: No Advance Directives Information Provided: No Physical Exam ED Vital Signs: Vital Signs - 24 hr 09/18/24 21:29 09/19/24 00:54 Temperature 98 F Pulse Rate 88 75 Respiratory Rate 18 20 Blood Pressure 160/108 H 140/90 H Pulse Oximetry 98 95 Oxygen Delivery Method Room Air Room Air BMI result Body Mass Index 31.4 Appearance: Alert. Oriented X3. No acute distress. Eyes: PERRLA, No Nystagmus ENT: Pharynx normal. Oral Mucosa moist Neck: Normal inspection. Neck supple. CVS: Normal heart rate and rhythm. Pulses normal. Respiratory: No respiratory distress. Equal air entry bilateral, no wheezing/rales/rhonchi Abdomen: Soft and mild tenderness of the umbilical area with postop changes. Bowel sounds are present, no mass palpable, no CVA tenderness Skin: Skin warm and dry. Normal skin color. Normal skin turgor. Extremities: No lower extremity edema. No calf tenderness Neuro: Oriented X 3. No motor deficit. No sensory deficit.No cerebellar signs , cranial nerves II-XII intact Medical Decision Making Medical Decision Making [facility] Narrative: Patient with abdominal pain post umbilical surgery CT scan negative for acute labs are stable pain is likely muscular from the postop changes Differential Diagnosis Differential Diagnoses: The differential diagnosis associated with the presentation includes Renal colic/diverticulitis/UTI/musculoskeletal Lab Data [facility] Lab Attestation statement: I reviewed the patient's lab results. 09/18/24 22:24 09/18/24 22:24 Labs: Lab Results 09/18/24 09/19/24 Range/Units 22:24 00:53 WBC 7.7 (4.8-10.8) X10*3/uL RBC 4.56 L (4.60-5.80) X10*6/uL Hgb 13.7 L (14.0-18.0) g/dl Hct 38.4 L (42.0-52.0) % MCV 84.2 (80.0-98.0) fL MCH 30.0 (27.0-33.0) pg MCHC 35.7 (31.0-36.0) g/dl RDW 14.6 (11.0-16.0) % Plt Count 288 (160-400) X10*3/uL MPV 8.6 L (9.4-12.4) fL Immature Gran % (Auto) 0.3 (0.0-0.4) % Neut % (Auto) 43.5 L (45-73) % Lymph % (Auto) 39.3 (20-40) % Dade % (Auto) 8.4 (2-11) % Eos % (Auto) 7.7 H (0-4) % Baso % (Auto) 0.8 (0-2) % Lymph # (Auto) 3.0 (1.2-4.9) X10*3/uL Dade # (Auto) 0.7 (0.1-1.2) X10*3/uL Eos # (Auto) 0.6 H (0.0-0.4) X10*3/uL Baso # (Auto) 0.1 (0.0-0.2) X10*3/uL Abs Immat Gran (auto) 0.02 (0.00-0.03) X10*3/uL Absolute Neuts (auto) 3.4 (2.0-8.3) x10*3/uL Absolute Nucleated RBC 0.000 (0.0-0.012) X10*3/uL Nucleated RBC % (auto) 0.0 (0.0-0.2) /100WBC Sodium 140 (135-145) mmol/L Potassium 4.2 (3.3-5.1) mmol/L Chloride 107 (96-108) mmol/L Carbon Dioxide 24 (22-29) mmol/L Anion Gap 13 (12-20) BUN 15 (9-16) mg/dL Creatinine 1.23 (0.5-1.4) mg/dL Estim Creat Clear Calc 81.0 Estimated GFR > 60 Random Glucose 110 (60-115) mg/dL Calcium 9.3 (8.4-10.2) mg/dL Total Bilirubin 0.3 (0.0-1.0) mg/dL AST 26 (5-37) U/L ALT 28 (0-40) U/L Alkaline Phosphatase 71 (39-117) U/L Total Protein 6.5 (6.5-8.0) g/dL Albumin 3.9 (3.5-5.0) g/dL Urine Color Yellow Urine Appearance Clear Urine pH 6.0 (5.0-9.0) Ur Specific Medon 1.020 (1.005-1.025) Urine Protein Negative (Neg-Trace) mg/dL Urine Glucose (UA) Negative (Negative) mg/dL Urine Ketones Trace (Negative) mg/dL Urine Blood Negative (Negative) Urine Nitrite Negative (Negative) Ur Leukocyte Esterase Negative (Negative) Urine RBC 0-2 (0-2) /HPF Urine WBC 0-5 (0-5) /HPF Ur Squamous Epith Cells 0-2 (0-2) /HPF Urine Bacteria None Seen (None Seen) Hyaline Casts 0-2 (0-2) /LPF Radiology Impression Discussion of test interpretation with radiology: I have reviewed the radiologist's reading. Radiologist Impression: No acute finding Discharge Plan Discharge Clinical Impression: Acute postoperative abdominal pain Patient Disposition: Home, Self-Care Instructions: Pain Management After Surgery (DC) Additional Instructions: Your pain is likely from surgery no acute finding were seen in the CAT scan of the abdomen your labs are stable Take Tylenol/Motrin for the pain Follow up with surgeon as needed Prescriptions: No Action lidocaine [Lidoderm] 5 % adhesive patch,medicated 1 patch topical DAILY Qty: 15 0RF Rx Instructions: leave on most painful area for up to 12 hrs oxycodone-acetaminophen 5-325 mg tablet 1 tab PO Q6H PRN (Reason: pain) Qty: 20 0RF Rx Instructions: Partial Fill upon patient request. ibuprofen 600 mg tablet 600 mg PO Q6H PRN (Reason: pain) Qty: 30 0RF cyclobenzaprine 10 mg tablet 10 mg PO TID atenolol 50 mg tablet 50 mg PO DAILY amlodipine-benazepril 5-10 mg capsule 1 cap PO DAILY Print Language: Japanese
[2024-09-19 00:54] VITALS: BP 140/90; PULSE 75; RESP 20; O2SAT 95
[2024-09-19 01:00] LABS: Appearance Urine Clear; Color Urine Yellow; Glucose Urine UA Negative (Negative); Leukocyte Esterase Urine Negative (Negative); Nitrite Urine Negative (Negative); Urine Blood Negative (Negative); Urine Ketones Trace mg/dL (Negative); Urine Protein Negative (Neg-Trace)
[2024-09-19 01:05] LABS: Bacteria Urine None Seen (None Seen); Hyaline Casts Urine 0-2 /LPF (0-2); RBC Urine 0-2 /HPF (0-2); Squamous Epithelial Cell Urine 0-2 /HPF (0-2); WBC Urine 0-5 /HPF (0-5)
[2024-09-19 02:01] VITALS: BP 140/90; PULSE 75; RESP 20; TEMP 36.9; O2SAT 95
== END 2024-09-19 02:02 | disposition home or self-care (01) ==
PROVIDERS: Emergency Provider Internal Medicine; PCP Internal Medicine
DX: G89.18 Other acute postprocedural pain (principal); R10.32 Left lower quadrant pain; K42.9 Umbilical hernia without obstruction or gangrene
CPT/HCPCS: 36415; 74176; 80053; 81001; 85025; 99284

== ENCOUNTER → 2024-09-18 22:56 | Outpatient (BNV) | payer OTHER, SELFPAY | PROVIDERS: Emergency Provider Internal Medicine; PCP Internal Medicine; Visit Provider Radiology Diagnostic Radiology | DX: R10.9 Unspecified abdominal pain (principal) | CPT/HCPCS: 74176 ==

== ENCOUNTER 2024-09-27 09:57 | Outpatient (AMB) | payer OTHER, SELFPAY ==
--- NOTE | 2024-09-27 09:58 | MHC.OFFVIS ---
Vital Signs 09/27/24 10:11 Height 6 ft Weight 227 lb 1.218 oz BMI 30.8 Respiration 18 Pulse 62 Intake Visit Reasons: post umbilical hernia Intake Note: Patient is seen in office for post op assessment post umbilical hernia repair. 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 Patient reports he is doing well. States his pain is now gone. States he never used to use narcotics for pain, was adequately controlled with OTC meds. He does experience some occasional sharp bouts of pain when he moves. He also reports that a few days after the operation he had a sharp pain in his lower abdomen for which he went to the emergency department where they did not find anything concerning. Endorses some moderate bruising around the incision site that appears to be improving. Otherwise patient is doing well he denies fever, chills at home. Denies nausea, vomiting. Appetite is back to baseline. Patient is having regular bowel movements. Reports he has been going to the gym to do gentle walking. He has no other concerns at this time [facility] Medical History Insomnia Hyperprolactinemia HTN (hypertension) Obstructive sleep apnea Umbilical hernia Surgical History Hx of umbilical hernia repair (09/14/24) H/O colonoscopy Hx of left inguinal hernia repair Social History Unable to assess alcohol history related to: Unknown Alcohol intake: never Patient Tobacco Use Status: Current someday Tobacco user Review of Systems Const Denies chills and Denies fever(s) GI Details: Denies discharge from incision site. Bruising around incision site Denies abdominal pain, Denies constipation, Denies loose stools, Denies nausea and Denies vomiting Physical Exam Vital Signs: BMI result Body Mass Index 30.8 Const General: comfortable and no acute distress Orientation/consciousness: patient oriented x3 Resp Effort & Inspection: normal respiratory effort and able to speak in complete sentences GI Other: Incision site clean and dry, no abnormal discharge no palpable fluid collection, no surrounding erythema or warmth Inspection: Yes abdominal wall ecchymosis (Mild, surrounding umbilicus) and No distended Palpation (GI): Soft to palpation, not firm, Tenderness to palpation present (GI) (Mild, incisional), no guarding and not rigid Neuro General: patient oriented x3 Assessment & Plan Assessment & Plan (1) S/P umbilical hernia repair, follow-up exam: Code(s): Z09 - Encounter for follow-up examination after completed treatment for conditions other than malignant neoplasm Category: Surgical Plan 58-year-old male status post umbilical hernia repair with mesh on 09/14/24 returning to the office for routine 2 week follow-up. Patient is doing well. Pain is controlled without medication at this time. Patient has occasional pain at the site with certain movements. Appetite and bowel function are at baseline. Abdominal exam is soft and benign. There is visible ecchymosis surrounding the incision site appears to be improving. Incision site is clean and dry, no concern for infection at this time. We discussed activity limitations, patient is okay to continue with walking at the gym however I stressed the importance of no heavy weight lifting greater than 15 lb for which patient agreed. He denies any heavy lifting at this time. Patient will follow-up in 2 weeks for a 1 month postop visit. Patient can return sooner as needed with any questions or concerns Coding Level of Care Code Est Pt Level 3 (50843) Diagnoses S/P umbilical hernia repair, follow-up exam Z09 Time Spent (min) 30
[2024-09-27 10:11] VITALS: PULSE 62; RESP 18; BMI 30.8
--- OUTSIDE RECORDS SUMMARY | 2024-09-27 10:54 | XMS_ITS | Data Portability ---
Author Organization [facility], [facility] Address [address] [place] [address] Care Team Providers Care Morgue Technician Name Role Phone TROY LEVINE Primary Care Provider [phone] Assessment Encounter Date Assessment Date Assessment LastModified [...] of the left knee dated 04/29/2024 from [facility]. There is degenerative tearing of the [...] grossly intact. Eyes: Sclera are not blue. inbound telemarketer II-XII are grossly intact. Full extraocular motion. [...] after this procedure may be protracted and incomplete. I explained that, as a result, permanent [...] visit note. This note was generated with [facility] speech recognition life science technician dictation software. Please excuse any errors that may have been overlooked during review of this note. Sometimes, these errors may affect the content or meaning of a given sentence. Please call for corrections. [email or web address] Not available 05/25/2024 15:23:43 Plan of Treatment Reminders Order Date Submit Date Provider Last Modified By Organization Details Last Modified Time Details Appointments None recorded. Lab None recorded. Referral None recorded. Procedures None recorded. Surgeries None recorded. Imaging MRI, knee, w/o contrast 2024 025 [facility] ([facility] [address], [place], [address], 5 08:31:30 XR, knee, 4 or more view - 107 2023 024 [facility] Office, [address], [facility] [address], [place], [address], 4 15:56:44 Medication Orders None recorded. Patient [...] a4ajBk vP9nXo QUaueC m3YtLR FvZlgJ JJ8mAn HZtai3 8a0903 AC0Kpb HqEVKH eUC8mr 84%3D INTERFACE [facility] [address], [place], [address], 11/03/2023 13:53:02 11/03/19 24 11/03/2023 XR, knee, 4 or more view http:/ [email or web address] ?Encry pted=s hAaTro YD8dLq bEUv6g %2BXZw aYqtaq 0bqfl% 2Fg9IQ a4ajBk vP9nXo QUaueC m3YtLR FvZlJ J8mAn HZtai3 4d4167 AC0Kpb HqEVKH eUC8mr 84%3D INTERFACE [facility] [address], [place], [address], 11/03/2023 13:53:05 04/30/19 25 04/29/2024 MRI, knee, w/o contr ast [facility] Access ion Number : [id number] Patien t Name: Bruce Trammell Record Number : [id number] Date of : 1965 Date of Exam: 2024 Referr ing Physic jackelyn: Neeta Samaniego [address] [facility], [place] [address] Exam: MR Knee (C-) CPT 79624 - Left Room Descri ption: [place] [facility] Verio 3.0T MRI left knee Histor y: Pain Findin gs: Mild free edge degene rative radial tearin g with mild trunca tion of the body of the medial menisc us. Additi onal myxoid degene ration in the receiving specialist ior horn of the medial menisc us [...] tment. Small unders urface tear within the receiving specialist ior horn of the latera l menisc us. Additi onal mild degene rative free edge radial tearin g with mild trunca tion of the receiving specialist ior horn of the latera l menisc [...] us. Small unders urface tear in the receiving specialist ior horn of the latera l menisc us. Additi onal mild degene rative free edge radial tearin g with mild trunca tion of the receiving specialist ior horn of the latera l menisc us. Tricom partme ntal chondr omalac ia is outlin ed above. Locula romana Thomas' s cyst. Electr onical ly Signed By: Belkis Adhikari MD [facility] ([facility]) [address] [place], [address], 04/30/2024 09:41:39 Result Notes None recorded. Problems Name Problem SNOMED Code Status Onset Date Resolution Date Notes Provider Name and Address Organization Details Recorded Time No complaints 369029723 Active Status : 'I'; Not Available [facility] 4 09:20:47 Pain of left knee joint 6115679011134 07 Active 2023 Neeta Herman PA-C [address] [facility], [place], [address] , [facility] 4 12:30:57 Problem Notes None recorded. Procedures Surgical History Date Name Laterality Status Provider Name and Address Organization Details Recorded Time 11/03/2023 Sports Knee 4&1 completed Neeta Herman PA-C [address], [place], [address], [facility] 11/05/2023 08:44:04 Imaging Results None recorded. Procedure Notes None recorded. Medical Equipment None Reported. Allergies Allergen ID Allergen Name Allergen Category Reaction Reaction Severity Criticality Documentation Date Start Date Code Code System Note Provider Name and Address Organization Details Recorded Time 69475 Bactrim medicatio n Not available Not available Not available 06/23/20232021 51208 9 RxNorm Not Available [facility] 4 15:00:30 Medications Name Sig Start Date Stop [...] Not Available No t Available amoxicillin 875 mg-darwin worrell clavulanate 125 mg tablet TAKE 1 TABLET [...] Not Available Vitals Date Recorded Body height Provider Name an d Address Organization Details Last Updated DateTime 04/27/2024 182.88 cm GEMA SEGUNDO [facility] 04/27/2024 15:16:42 Date Recorded Body height Body mass index (BMI) Body weight Heart rate Body temperature Oxygen saturation Oxygen saturation in Arterial blood by Pulse oximetry Respiratory rate Systolic blood pressure Diastolic blood pressure Provider Name and Address Organization Details Last Updated DateTime 182.88 cm 29.8 kg/m2 52175.3 2 g 71 /min 98.2 [degF] 96 % 96 % 18 /min 118 mm[Hg] 80 mm[Hg] CLAUDIA FERNANDES [facility] 15:43:32 Date Recorded Body height Body mass index (BMI) Body weight Provider Name and Address Organization Details Last Updated DateTime 11/03/2023 182.88 cm 29.8 kg/m2 12634.32 g EDDIE Ozuna [facility] 11/03/2023 13:43:44 Social History Question Answer Notes LastModified by [employer] Details LastModified Time Tobacco Smoking Status Current Some Day Smoker EDDIE nunez [facility] 11/03/2023 13:43:31 Which Of Your Hands Is Dominant? Right Information not available 11/03/2023 What Is Your Relationship Status? Single Information not available 11/03/2023 How Many Years Have You Smoked Tobacco? 15 Information not available 11/03/2023 Sex: Unknown Functional Status Question Answer Note LastModified by Organizat ion Details LastModified Time Do you use any illicit or recreational drugs? No [email or web address] Information not available 11/03/2023 Do you or have you ever used any other forms of tobacco or nicotine? No [email or web address] Information not available 11/03/2023 What is your level of alcohol consumption? None [email or web address] Information not available 11/03/2023 Mental Status None recorded. Family History Nothing Reported. Medical History Condition Response Allergies/Hayfever N Coronary Artery Disease N Anxiety/Depression N Breathing or lung disorders N Emphysema N Nerve Disorders N Thyroid Problems N COPD N Pacemaker N Anemia N Kidney/Bladder Problems N Vascular Disease N Heart Trouble N Heart Attack (NM) N Gastrointestinal Disease N Cholesterol N Diabetes [...] SNOMED-CT Code Diagnosis ICD10 Code Diagnosis Note [id number] PATI Machado [address] [place] [address] 11/03/2023 13:31:05 11/18/2023 15:56:44 Pain of left knee joint 0971882641 13373 M25.983 1396135 PATI Morton [address] [place] [address] 04/27/2024 14:55:14 05/12/2024 08:31:30 Pain of left knee joint 1395987181 89483 M25.365 [id number] MD GEMMA Sanon [address] [place] [address] 05/25/2024 14:25:24 06/07/2024 13:03:19 Tear of medial meniscus of knee 653783269 S83.242A Tear of la teral meniscus of knee 826216284 S83.282A Chondromal acia of left knee 1805653875 5246325 M94.262 Health Concerns Section Related Observation LastModified by Organization Detai ls LastModified Time None Recorded Concern Status LastModified by Organization Details LastModified Time None Recorded Advance Directives Directive None Recorded Payers Encounter Date Sequence Insurance Name Policy Number Policy Gupta Covered Member ID Gupta Member ID Guarantor Name 11/03/2023 1 [facility] (MEDICAID HMO) [id number] Bruce Trammell [id number] Bruce Trammell 04/27/2024 1 [employer] [facility] BC-MARIUSZ (EPO) [id number] Bruce Trammell [id number] Bruce Trammell 05/25/2024 1 [employer] [place] ([place]PO[place] [id number] Bruce Palmeros [id number] Bruce Palmeros Notes Date Note Type Note Provider Name and Address Organization Details Recorded Time 11/03/2023 text/html I am seeing the patient today under the supervision of Dr. Ennis who was available but who did not see the patient. HPI: 57-year-old male patient presents today for left knee pain that began about 6 months ago, no specific injury. Localizes his pain to the medial aspect of the knee. 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 Pain exacerbated with pivoting, pushing a bed, stairs, at night and prolonged walking. He does report mechanical catching. He takes ibuprofen as needed. Past family, social history and review of systems has been reviewed, updated and is located in the patient? s chart. X-RAYS:4v X-rays of the Left knee were ordered, obtained and reviewed today at [facility] demonstrates well preserved medial and lateral compartment spaces, mild to moderate patellofemoral space narrowing. IMPRESSION: Left knee - patellofemoral arthrosis, possible medial meniscus tearPLAN: Findings reviewed. Discussed conservative treatment as an appropriate initial option. He elected to proceed with left knee cortisone injection today. Discussed continuing to use [id number] knee sleeve and anti-inflammatories as needed. Discussed low impact exercise and avoiding squatting and kneeling to lower recheck visit. Follow-up in 8-10 weeks for recheck, if symptoms continue would obtain an MRI to rule out meniscus tear. All of his concerns are addressed and he understands and agrees with the plan. Speech recognition life science technician software was used to create portions of this document. An attempt at proofreading has been made to minimize errors. Please call for corrections. Neeta Herman PA-C [email or web address], [place], [address], [place] [facility] 11/05/2023 08:45:07 04/27/2024 text/html I am seeing the patient today under the supervision of Dr. 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 Pain exacerbated with pivoting, pushing a bed, stairs, at night and prolonged walking. He does report mechanical catching. He takes ibuprofen as needed. Past family, social history and review of systems has been reviewed, updated and is located in the patient? s chart.X-RAYS:Previo us4v X-rays of the Left knee reviewed today at [facility] demonstrates well preserved medial and lateral compartment spaces, mild to moderate patellofemoral space narrowing. IMPRESSION: Left knee - patellofemoral arthrosis, possible medial meniscus [...] and agrees with the plan. Speech recognition life science technician software was used to create portions of this document. An attempt at proofreading has been made to minimize errors. Please call for corrections. Neeta John PA-C [address], [place], [address], [facility] - [facility] 04/27/2024 16:51:36
== END 2024-09-27 10:12 | disposition home or self-care (01) ==
LOC: HO.HGS 09:58
PROVIDERS: PCP Internal Medicine
DX: Z09 Encounter for follow-up examination after completed treatment for conditions other than malignant neoplasm (principal)
CPT/HCPCS: 99213

== ENCOUNTER → 2024-09-27 09:57 | Outpatient (BNVA) | payer OTHER, SELFPAY | PROVIDERS: PCP Internal Medicine ==

== ENCOUNTER 2024-10-11 08:46 | Outpatient (AMB) | payer OTHER, SELFPAY ==
--- NOTE | 2024-10-11 08:56 | A.OFFVIS_ITS ---
Vital Signs 10/11/24 09:04 Height 6 ft Weight 226 lb BMI 30.6 BP 106/60 Blood Pressure Location Lt brachial Position Sitting Respiration 18 Pulse 72 Intake Visit Reasons: 2wk fuv post umbilical hernia Intake Note: Patient is seen in office for post op assessment post umbilical hernia repair. Pt c/o: denies any concerns. Feels ready to go back to work. Brass Cutter Required: No Allergies sulfamethoxazole (From Bactrim) Allergy (Verified 10/11/24 09:02) Hives trimethoprim (From Bactrim) Allergy (Verified 10/11/24 09:02) Hives Medication List - Last Reconciled 10/11/24 by Cuco Santoyo, RN amlodipine-benazepril 5-10 mg 1 cap PO DAILY atenolol 50 mg PO DAILY ibuprofen 600 mg PO Q6H PRN lidocaine 5% (Lidoderm) 1 patch topical DAILY HPI HPI 2wk fuv post umbilical hernia: Details: Patient doing well. Has no complaints or concerns. 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 Reports he has lost about 5 lb since the operation, doing cardio. Appetite and bowel function are normal [facility] Medical History Insomnia Hyperprolactinemia HTN (hypertension) Obstructive sleep apnea Umbilical hernia Surgical History Hx of umbilical hernia repair (09/14/24) H/O colonoscopy Hx of left inguinal hernia repair Social History Unable to assess alcohol history related to: Unknown Alcohol intake: never Patient Tobacco Use Status: Current someday Tobacco user Review of Systems Const All systems reviewed & are unremarkable except as noted in HPI and below Physical Exam Vital Signs: Last Vital Signs Pulse 72 10/11/24 09:04 Resp 18 10/11/24 09:04 BP 106/60 10/11/24 09:04 BMI result Body Mass Index 30.6 Const General: comfortable and no acute distress Resp Effort & Inspection: normal respiratory effort and able to speak in complete sentences GI Other: Umbilical incision healing well, no surrounding erythema, nontender, Inspection: No distended Palpation (GI): Soft to palpation, not firm, nontender, no guarding and not rigid Assessment & Plan Assessment & Plan (1) S/P umbilical hernia repair, follow-up exam: Code(s): Z09 - Encounter for follow-up examination after completed treatment for conditions other than malignant neoplasm Category: Medical Plan 58-year-old male s/p umbilical hernia repair with mesh on 09/14/2024. Patient doing very well. Denies any pain, appetite and bowel function are at baseline. On exam the patient is soft and nontender in the abdomen. Incision site appears to be healing well, remains intact, no current concern for infection. We discussed returning to work, patient can return to work and physical activity as tolerated. I recommended that he take it slow while returning to his baseline level activity. Also recommended using 2 person assist when needing to lift heavier loads all at work. Patient no longer requiring follow-up, he can return as needed for any concerns in the future Coding Level of Care Code Est Pt Level 2 (76670) Diagnoses S/P umbilical hernia repair, follow-up exam Z09 Time Spent (min) 26
[2024-10-11 09:04] VITALS: BP 106/60; PULSE 72; RESP 18; BMI 30.6
--- OUTSIDE RECORDS SUMMARY | 2024-10-11 09:10 | XMS_ITS | Data Portability ---
Author Organization MAR[facility]US[facility] Jose Schroeder [facility] Surgeons [facility], [facility] Address [address] [place] [address] Care Team Providers Care Distance Education Director Name Role Phone TROY LEVINE Primary Care Provider [phone] Assessment Encounter Date Assessment Date Assessment LastModified [...] of the left knee dated 04/29/2024 from [facility]. There is degenerative tearing of the body [...] grossly intact. Eyes: Sclera are not blue. 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 Full extraocular motion. [...] erythema or ecchymosis. Range of motion from 0-130 . He has pain with deep knee flexion. [...] addressed. 1. A detailed discussion regarding the patient s pathoanatomy and treatment options, both operative [...] visit note. This note was generated with [facility] speech recognition integration lead dictation software. Please excuse any errors that may have been overlooked during review of this note. Sometimes, these errors may affect the content or meaning of a given sentence. Please call for corrections. [email or web address] Not available 05/25/2024 15:23:43 Plan of Treatment Reminders Order Date Submit Date Provider Last Modified By Organization Details Last Modified Time Details Appointments None recorded. Lab None recorded. Referral None recorded. Procedures None recorded. Surgeries None recorded. Imaging MRI, knee, w/o contrast 2024 025 [facility] ([facility] [address], [place], [address], 5 08:31:30 XR, knee, 4 or more view - 107 2023 024 [facility] Office, [address], [address], [place], [address], 4 15:56:44 Medication Orders None recorded. Patient [...] a4ajBk vP9nXo QUaueC m3YtLR FvZlgJ JJ8mAn HZtai3 0k6163 AC0Kpb HqEVKH eUC8mr 84%3D INTERFACE [facility] [address], [place], [address], 11/03/2023 13:53:02 11/03/19 24 11/03/2023 XR, knee, 4 or more view http:/ [email or web address] ?Encry pted=s hAaTro YD8dLq bEUv6g %2BXZw aYqtaq 0bqfl% 2Fg9IQ a4ajBk vP9nXo QUaueC m3YtLR FvZlgJ JJ8mAn HZtai3 9o2503 AC0Kpb HqEVKH eUC8mr 84%3D INTERFACE [facility] [address], [place], [address], 11/03/2023 13:53:05 04/30/19 25 04/29/2024 MRI, knee, w/o contr ast [facility] Access ion Number : [id number] Patien t Name: Bruce Trammell Record Number : [id number] Date of : 1965 Date of Exam: 2024 Referr ing Physic jackelyn: Neeta Samaniego [address] [facility], [place] [address] Exam: MR Knee (C-) CPT 67762 - Left Room Descri ption: [facility] 3.0T MRI left knee Histor y: Pain Findin gs: Mild free edge degene rative radial tearin g with mild trunca tion of the body of the medial menisc us. Additi onal myxoid degene ration in the wind energy systems installer ior horn of the medial menisc us [...] tment. Small unders urface tear within the wind energy systems installer ior horn of the latera l menisc us. Additi onal mild degene rative free edge radial tearin g with mild trunca tion of the wind energy systems installer ior horn of the latera l menisc [...] us. Small unders urface tear in the wind energy systems installer ior horn of the latera l menisc us. Additi onal mild degene rative free edge radial tearin g with mild trunca tion of the wind energy systems installer ior horn of the latera l menisc us. Tricom partme ntal chondr omalac ia is outlin ed above. Locula romana Thomas' s cyst. Electr onical ly Signed By: Belkis Adhikari MD [email or web address] [facility] ([facility]) [address] [place], [address], 04/30/2024 09:41:39 Result Notes Documentation Provider Name and Address Organization Details Recorded Time Xr, Knee, 4 Or More View : [email or web address] ncrypted=fiTySrqIL9wSglJQi 6g%2FEKiqWcfri1pkjd%2Fg9IQ c3zlOhpR1fWnODncnNy2XaDXEk LusZAZ9dJpIFvho54u4882HH0O dgKpKKJFnYV6mq75%3D Not Available [facility] 11/03/2023 13:53:04 Xr, Knee, 4 Or More View : [email or web address] ncrypted=wsEtEjpRR8dUntGKa 6g%8AYDjnIvhxa8nnfs%2Fg9IQ h2ocKxtJ2fJkIZgnoSn2HvRMFj NepHIG2vIbSThnz95y9760JW9K xhFxIMPFzJG9ws93%3D Not Available [facility] 11/03/2023 13:53:06 Mri, Knee, W/o Contrast : [facility] Accession Number: [id number] Patient Name: Bruce Trammell Date of : 1965 Date of Exam: 04-29-2024 Referring Physician: Neeta Herman [address] [place], [place] [address] Exam: MR Knee (C-) CPT 14932 - Left Room Description: [facility] 3.0T MRI left knee History: Pain Findings: Mild free edge degenerative radial tearing with mild truncation of the body of the medial meniscus. Additional myxoid degeneration in the posterior horn of the medial meniscus Body of the medial meniscus is subluxed slightly into the medial gutter. Thinning and irregularity within weightbearing surface cartilage of the medial compartment. Small amount of subchondral marrow edema in the medial tibial plateau. Small marginal osteophytes in the medial compartment. Small undersurface tear within the posterior horn of the lateral meniscus. Additional mild degenerative free edge radial tearing with mild truncation of the posterior horn of the lateral meniscus. Thinning and irregularity within weightbearing surface cartilage of the lateral compartment The ACL and PCL are intact The MCL is intact The LCL complex including the biceps femoris, popliteus and fibular collateral ligaments are intact The medial and lateral patellar retinacula are intact. Full thickness fissure within medial patellar facet cartilage. The extensor mechanism is intact Loculated Thomas's cyst cyst measures up to 3 cm AP by 6.5 cm craniocaudal.. Impression: Degenerative free edge radial tearing with truncation of the body of the medial meniscus. Small undersurface tear in the posterior horn of the lateral meniscus. Additional mild degenerative free edge radial tearing with mild truncation of the posterior horn of the lateral meniscus. 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 Loculated Thomas's cyst. Electronically Signed By: Baltazar nunez [place] - [facility] 04/30/2024 09:41:39 Problems Name Problem SNOMED Code Status Onset Date Resolution Date Notes Provider Name and Address Organization Details Recorded Time No complaints 836878596 Active Status : 'I'; Not Available [employer] 4 09:20:47 Pain of left knee joint 9669606253548 07 Active 2023 Neeta Herman PA-C [address], [facility] [place], [address] , [facility] - [facility] 12:30:57 Problem Notes None recorded. Procedures Surgical History Date Name Laterality Status Provider Name and Address Organization Details Recorded Time 11/03/2023 Sports Knee 4&1 completed Neeta Herman PA-C [address], [place], [address], [facility] - [facility] 11/05/2023 08:44:04 Imaging Results None recorded. Procedure Notes None recorded. Medical Equipment None Reported. Allergies Allergen ID Allergen Name Allergen Category Reaction Reaction Severity Criticality Documentation Date Start Date Code Code System Note Provider Name and Address Organization Details Recorded Time 45768 Bactrim medicatio n Not available Not available Not available 06/23/20232021 73744 9 RxNorm Not Available [facility] 15:00:30 Medications Name Sig Start Date Stop [...] Updated DateTime 04/27/2024 182.88 cm GEMA SEGUNDO [facility] 04/27/2024 15:16:42 Date Recorded Body height Body mass index (BMI) Body weight Heart rate Body temperature Oxygen saturation Oxygen saturation in Arterial blood by Pulse oximetry Respiratory rate Systolic blood pressure Diastolic blood pressure Provider Name and Address Organization Details Last Updated DateTime 182.88 cm 29.8 kg/m2 96136.3 2 g 71 /min 98.2 [degF] 96 % 96 % 18 /min 118 mm[Hg] 80 mm[Hg] CLAUDIA FERNANDES [facility] 15:43:32 Date Recorded Body height Body mass index (BMI) Body weight Provider Name and Address Organization Details Last Updated DateTime 11/03/2023 182.88 cm 29.8 kg/m2 65406.32 g EDDIE VALDES [place] - [facility] 11/03/2023 13:43:44 Social History Question Answer Notes LastModified by Organizat ion Details LastModified Time Tobacco Smoking Status Current Some Day Smoker EDDIE CARRASQUILLO mayra [place] - [facility] 11/03/2023 13:43:31 Which Of Your Hands Is Dominant? Right [email or web address] Information not available 11/03/2023 What Is Your Relationship Status? Single Information not available 11/03/2023 How Many Years Have You Smoked Tobacco? 15 Information not available 11/03/2023 Sex: Unknown Functional Status Question Answer Note LastModified by Organizat ion Details LastModified Time Do you use any illicit or recreational drugs? No [email or web address] Information not available 11/03/2023 Do you or have you ever used any other forms of tobacco or nicotine? No [email or web address] Information not available 11/03/2023 What is your level of alcohol consumption? None Information not available 11/03/2023 Mental Status None recorded. Family History Nothing Reported. Medical History Condition Response Allergies/Hayfever N Coronary Artery Disease N Anxiety/Depression N Breathing or lung disorders N Emphysema N Nerve Disorders N Thyroid Problems N COPD N Pacemaker N Anemia N Kidney/Bladder Problems N Vascular Disease N Heart Trouble N Heart Attack ([place]) N Gastrointestinal Disease N Cholesterol N Diabetes [...] SNOMED-CT Code Diagnosis ICD10 Code Diagnosis Note [id number] PATI Machado [address] [place] [address] 11/03/2023 13:31:05 11/18/2023 15:56:44 Pain of left knee joint 6689340307 28024 M25.201 [id number] PATI Morton [address] [place] [address] 04/27/2024 14:55:14 05/12/2024 08:31:30 Pain of left knee joint 7459216711 73164 M25.139 [id number] MD GEMMA Sanon [address] [place] [address] 05/25/2024 14:25:24 06/07/2024 13:03:19 Tear of medial meniscus of knee 644625984 S83.242A Tear of la teral meniscus of knee 628982310 S83.282A Chondromal acia of left knee 7785343547 9446909 M94.262 Health Concerns Section Related Observation LastModified by Organization Detai ls LastModified Time None Recorded Concern Status LastModified by Organization Details LastModified Time None Recorded Advance Directives Directive None Recorded Payers Insurance Date Sequence Insurance Name Policy Number Policy Gupta Covered Member ID Gupta Member ID Guarantor Name 05/26/2024 1 [facility] (MEDICAID HMO) [id number] Bruce Trammell [id number] Bruce Trammell 05/26/2024 1 [employer] [place]) [id number] Bruce Trammell [id number] Bruce Trammell Notes Date Note Type Note [...] 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 Pain exacerbated with pivoting, pushing a bed, stairs, at night and prolonged walking. He does report mechanical catching. He takes ibuprofen as needed. Past family, social history and review of systems has been reviewed, updated and is located in the patient s chart. X-RAYS:4v X-rays of the Left knee were ordered, obtained and reviewed today at [facility] demonstrates well preserved medial and lateral compartment spaces, mild to moderate patellofemoral space narrowing. IMPRESSION: Left knee - patellofemoral arthrosis, possible medial meniscus tearPLAN: Findings reviewed. Discussed conservative treatment as an appropriate initial option. He elected to proceed with left knee cortisone injection today. Discussed continuing to use fqxl-dij-rviurbu knee sleeve and anti-inflammatories as needed. Discussed low impact exercise and avoiding squatting and kneeling to lower recheck visit. Follow-up in 8-10 weeks for recheck, if symptoms continue would obtain an MRI to rule out meniscus tear. All of his concerns are addressed and he understands and agrees with the plan. Speech recognition integration lead software was used to create portions of this document. An attempt at proofreading has been made to minimize errors. Please call for corrections. Neeta Herman PA-C [address] [facility] [address] [facility], [place], [address], [facility] - 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 He does report mechanical catching. He takes ibuprofen as needed. Past family, social history and review of systems has been reviewed, updated and is located in the patient s chart.X-RAYS:Previou s4v X-rays of the Left knee reviewed today at [facility] demonstrates well preserved medial and lateral compartment spaces, mild to moderate patellofemoral space narrowing. IMPRESSION: Left knee - patellofemoral arthrosis, possible medial meniscus tear PLAN: Findings reviewed. Patient has tried a cortisone injection 7--2024 and ibuprofen with mild relief. However, he continues to have medial and posterior aspect knee pain worse with activity. Given his minimal osteoarthritis, recommended MRI of left knee to rule out degenerative meniscus tear and discussed role of arthroscopy. Follow-up for MRI review and ongoing symptoms. All of his concerns are addressed and he understands and agrees with the plan. Speech recognition integration lead software was used to create portions of this document. An attempt at proofreading has been made to minimize errors. Please call for corrections. Neeta John PA-C [address], [place], [address], [facility] - [facility] 04/27/2024 16:51:36
== END 2024-10-11 09:09 | disposition home or self-care (01) ==
LOC: HO.HGS 08:47
PROVIDERS: PCP Internal Medicine
DX: Z09 Encounter for follow-up examination after completed treatment for conditions other than malignant neoplasm (principal)
CPT/HCPCS: 99212